=== PATIENT | female | born 1985 | race American Indian/Alaskan Native ===

== ENCOUNTER 2019-06-05 23:08 | Emergency (ER) | payer BC ==
[2019-06-06] MEDS ORDERED: ALBUTEROL 2.5 MG/3 ML NEBU IH ONE (00:32)
[2019-06-06] MEDS ORDERED: IBUPROFEN 800 MG TAB PO ONE (00:32)
[2019-06-06] MEDS ORDERED: predniSONE 20 MG TAB PO ONE (00:32)
--- NOTE | 2019-06-06 00:50 | Emergency Department Report ---
ED General Adult HPI - General Chief complaint: Upper Respiratory Infection Stated complaint: CHEST PAIN PUI?: No Time Seen by Provider: 06/06/19 00:31 Source: patient Mode of arrival: Ambulatory Limitations: No Limitations - History of Present Illness Initial comments: Ms. Jordan is a 33-year-old -Malagasy female with a history of asthma who presents for cough productive clear chest wall pain for the last 3 days. States she was seen at [facility] urgent care yesterday. However symptoms not improved with ibuprofen and Tessalon Perles. She states some intermittent shortness of breath. There is no nausea vomiting, fever, chills, lightheadedness, diaphoresis, fever or chills. Symptoms are exacerbated by activity movement and deep breathing. Symptoms are relieved by nothing tried. Patient was able to complete a full shift at work today. She is currently alert and oriented and ambulatory with steady gait ,with no acute distress at this time. Onset/Timin -: days(s) Location: chest Severity scale (0 -10): 3 Quality: aching Consistency: intermittent Improves with: rest Worsens with: movement Associated Symptoms: chest pain (chest wall ), cough. denies: confusion, diaphoresis, fever/chills, loss of appetite, nausea/vomiting, shortness of breath, syncope, weakness Treatments Prior to Arrival: none - Related Data Previous Rx's Medication Instructions Recorded Last Taken Type Albuterol INH(or & Nicu Only) 2 puff IH QID PRN #8.5 gram 06/06/19 Unknown Rx [ProAir HFA Inhaler] Azithromycin [Zithromax Z-JOSUE] 250 mg PO DAILY #6 tab 06/06/19 Unknown Rx predniSONE [Deltasone] 40 mg PO DAILY 5 Days #10 tablet 06/06/19 Unknown Rx Allergies Allergy/AdvReac Type Severity Reaction Status Date / Time No Known Allergies Allergy Unverified 06/05/19 23:36 ED Review of Systems ROS: Stated complaint: CHEST PAIN Other details as noted in HPI Constitutional: denies: chills, fever Eyes: denies: eye pain, eye discharge, vision change ENT: denies: ear pain, throat pain Respiratory: cough, wheezing. denies: shortness of breath Cardiovascular: denies: chest pain, palpitations, dyspnea on exertion Endocrine: no symptoms reported Gastrointestinal: denies: abdominal pain, nausea, vomiting, diarrhea Genitourinary: denies: urgency, dysuria, frequency, hematuria, discharge Musculoskeletal: denies: back pain, joint swelling, arthralgia Skin: as per HPI Neurological: denies: headache, weakness, paresthesias Psychiatric: denies: anxiety, depression Hematological/Lymphatic: denies: easy bleeding, easy bruising ED Past Medical Hx - Past Medical History Hx Asthma: Yes - Surgical History Past Surgical History?: No - Social History Smoking Status: Never Smoker Substance Use Type: None - Medications Home Medications: Home Medications Medication Instructions Recorded Confirmed Last Taken Type Albuterol INH(or & Nicu Only) 2 puff IH QID PRN #8.5 gram 06/06/19 Unknown Rx [ProAir HFA Inhaler] Azithromycin [Zithromax Z-JOSUE] 250 mg PO DAILY #6 tab 06/06/19 Unknown Rx predniSONE [Deltasone] 40 mg PO DAILY 5 Days #10 tablet 06/06/19 Unknown Rx ED Physical Exam - General Limitations: No Limitations General appearance: alert, in no apparent distress - Head Head exam: Present: atraumatic, normocephalic - Eye Eye exam: Present: normal appearance, PERRL, EOMI Pupils: Present: normal accommodation - ENT ENT exam: Present: normal orophraynx, mucous membranes moist, TM's normal bilaterally, normal external ear exam - Neck Neck exam: Present: normal inspection, full ROM. Absent: tenderness, lymp hadenopathy - Respiratory Respiratory exam: Present: normal lung sounds bilaterally, chest wall tenderness, prolonged expiratory. Absent: respiratory distress, wheezes, rales, rhonchi, stridor, decreased breath sounds - Cardiovascular Cardiovascular Exam: Present: regular rate, normal rhythm, normal heart sounds. Absent: systolic murmur, diastolic murmur, rubs, gallop - GI/Abdominal GI/Abdominal exam: Present: soft, normal bowel sounds. Absent: distended, tenderness, guarding, rebound, rigid, bruit, hernia - Rectal Rectal exam: Present: deferred - Extremities Exam Extremities exam: Present: normal inspection - Back Exam Back exam: Present: normal inspection, full ROM. Absent: tenderness, CVA tenderness (R), CVA tenderness (L), muscle spasm, paraspinal tenderness - Neurological Exam Neurological exam: Present: alert, oriented X3, CN II-XII intact, normal gait, reflexes normal. Absent: motor sensory deficit - Psychiatric Psychiatric exam: Present: normal affect, normal mood - Skin Skin exam: Present: warm, dry, intact, normal color. Absent: rash ED Course Vital Signs 06/05/19 06/06/19 06/06/19 23:31 01:14 02:51 Temperature 99.4 F Pulse Rate 104 H 90 Pulse Rate [ 106 H Bilateral] Respiratory 18 18 Rate Respiratory 20 Rate [Bilateral ] Blood Pressure 142/87 135/82 O2 Sat by Pulse 100 96 Oximetry ED Medical Decision Making - EKG Data -: No EKG Interpreted by Me EKG shows normal: sinus rhythm, axis, intervals, QRS complexes, ST-T waves Rate: normal - EKG Data When compared to previous EKG there are: no significant change, previous EKG unavailable Interpretation: normal EKG (ekg interp by ed attending NSR No ST Elevated [place] ) - Radiology Data Radiology results: report reviewed, image reviewed Findings Reporting MD: Jose Hameed Dictation Time: June 06, 2019 00:37 Senior Government Program Analyst: Not available It Program Auditor Date: CHEST 2 VIEWS 0110 INDICATION / CLINICAL INFORMATION: MAIN: chest pain X 1 DAY COMPARISON: None available. FINDINGS: SUPPORT DEVICES: None. HEART / MEDIASTINUM: Mild cardiomegaly LUNGS / PLEURA: Mildly congested appearance is noted. There might be slight interstitial edema. No pleural effusions are seen. No areas of consolidation are noted. No pneumothorax. ADDITIONAL FINDINGS: No significant additional findings. IMPRESSION: Mild congestion Signer Name: Jose Hameed MD Signed: 06/06/2019 12:37 AM Workstation Name: [id number] - Medical Decision Making Symptoms improved, plan: dc to home with rx for albuterol inhaler, Prednisone, azithromycin, continue tessalon pears and ibuprofen, follow up with pcp in 2-3 days. Pt verbalized agreement and understanding of discharge plan. Critical care attestation.: If time is entered above; I have spent that time in minutes in the direct care of this critically ill patient, excluding procedure time. ED Disposition Clinical Impression: Asthma Qualifiers: Asthma severity: moderate Asthma persistence: persistent Asthma complication type: with acute exacerbation Qualified Code(s): J45.41 - Moderate persistent asthma with (acute) exacerbation Disposition: DC-01 TO HOME OR SELFCARE Is pt being admited?: No Does the pt Need Aspirin: No Condition: Stable Instructions: Asthma (ED) Prescriptions: predniSONE [Deltasone] 40 mg PO DAILY 5 Days #10 tablet Albuterol INH(or & Nicu Only) [ProAir HFA Inhaler] 2 puff IH QID PRN #8.5 gram PRN Reason: Shortness Of Breath Azithromycin [Zithromax Z-JOSUE] 250 mg PO DAILY #6 tab Referrals: DULCE MELARA MD [Staff Physician] - 3-5 Days Forms: Work/School Release Form(ED) Time of Disposition: 02:59
--- NOTE | 2019-06-06 01:42 | XRay Report ---
CHEST 2 VIEWS 0110 INDICATION / CLINICAL INFORMATION: MAIN: chest pain X 1 DAY COMPARISON: None available. FINDINGS: SUPPORT DEVICES: None. HEART / MEDIASTINUM: Mild cardiomegaly LUNGS / PLEURA: Mildly congested appearance is noted. There might be slight interstitial edema. No pl eural effusions are seen. No areas of consolidation are noted. No pneumothorax. ADDITIONAL FINDINGS: No significant additional findings. IMPRESSION: Mild congestion Signer Name: Jose Hameed MD Signed: 06/06/2019 1:37 AM Workstation Name: [id number]
[2019-06-06 02:52] VITALS: BP 135/82
== END 2019-06-06 03:07 | disposition home or self-care (01) ==
LOC: ED 23:08
DX: J45.21 Mild intermittent asthma with (acute) exacerbation (principal)
CPT/HCPCS: 71046; 93005; 94640; 99283; J7512; 94644

== ENCOUNTER 2020-01-09 23:06 | Inpatient (IN) | payer BC, MEDICAID ==
[2020-01-10] MEDS ORDERED: LACTATED RINGERS 1,000 ML IV ONE (00:26)
[2020-01-10 01:04] LABS: Bilirubin,Urine NEG (Negative); Blood,Urine NEG (Negative); Color,Urine Straw (Yellow); Protein,Urine <15 mg/dL mg/dL (Negative); Urobilinogen,Urine < 2.0 mg/dL (<2.0)
[2020-01-10] MEDS ORDERED: SODIUM CHLORIDE 0.45% 1000 ML 1,000 ML IV SCH ×3 (02:00→13:00)
[2020-01-10] MEDS ORDERED: INSULIN REGULAR, HUMAN 100 UNIT/ML 3ML VIAL IV SCH ×2 (02:00→14:00)
[2020-01-10] MEDS ORDERED: INSULIN REGULAR, HUMAN 100 UNIT/ML 3ML VIAL SUB-Q SCH ×4 (03:00→17:00)
[2020-01-10 03:15] LABS: Alanine Aminotransferase 15 units/L (7-56); Albumin 3.3 g/dL (3.9-5); BUN/Creatinine Ratio 18; Blood Urea Nitrogen 11 mg/dL (7-17); Calcium 9.9 mg/dL (8.4-10.2); Hemolysis Index 15
[2020-01-10] MEDS: INSULIN REGULAR, HUMAN 100 UNIT/ML 3ML VIAL SUB-Q SCH ×3 (03:36→10:35)
--- NOTE | 2020-01-10 04:05 | Consultation ---
History of Present Illness - Reason for Consult Consult date: 01/10/20 Gestational Diabetes, UTI, Hyponatremia - History of Present Illness This is a 34 year old female patient who presents with elevated blood sugar. hospitalist is consulted to see patient due to elevated blood sugar. On assessment, she reports urine frequency and urgency. She also report polydipsia. patient has past medical hx of gestational diabetes that resolved after delivery. She denies alcohol, illicit drug use and tobabbaco use. lung sound is clear to auscultation and heart rate is regular. Urinalysis shows elevated Urine WBC. lab work show potassium 4.0, sodium 131, serum glycose 374. Past History Past Medical History: diabetes, other (gestational diabetes) Past Surgical History: No surgical history Social history: no significant social history Family history: no significant family history Medications and Allergies Allergies Allergy/AdvReac Type Severity Reaction Status Date / Time No Known Allergies Allergy Verified 08/31/19 12:40 Home Medications Medication Instructions Recorded Confirmed Last Taken Type Albuterol Mdi (or & Nicu Only) 2 puff IH QID PRN #8.5 gram 06/06/19 Unknown Rx [ProAir HFA Inhaler] Azithromycin [Zithromax Z-JOSUE] 250 mg PO DAILY #6 tab 06/06/19 Unknown Rx predniSONE [Deltasone] 40 mg PO DAILY 5 Days #10 tablet 06/06/19 Unknown Rx Active Meds: Active Medications Sodium Chloride (Nacl 0.45% 1000 Ml) 1,000 mls @ 125 mls/hr IV DIRECT FATIMAH Last Admin: 01/10/20 03:01 Dose: 125 mls/hr Documented by: Insulin Human Regular (Humulin R) 0 unit SUB-Q Q4HR FATIMAH; Protocol Last Admin: 01/10/20 03:36 Dose: 8 unit Documented by: Labetalol HCl (Labetalol) 200 mg PO BID FATIMAH Review of Systems Cardiovascular: no chest pain Respiratory: no hemoptysis Gastrointestinal: no abdominal pain, no hematochezia Genitourinary Female: urinary frequency, urgency, incomplete emptying, no dyspareunia Menstruation: no period heavy Rectal: no pain Musculoskeletal: no neck stiffness, no arm numbness/tingling Integumentary: no rash Neurological: no head injury Psychiatric: anxiety Endocrine: excessive thirst, polydipsia, polyuria Hematologic/Lymphatic: no lymphedema Allergic/Immunologic: no angioedema Exam - Constitutional Vitals: Temp Pulse Resp BP Pulse Ox 98.4 F 121 H 19 177/111 100 01/10/20 02:09 01/10/20 03:51 01/10/20 02:09 01/10/20 03:39 01/10/20 03:51 General appearance: Present: obese - EENT Eyes: Present: PERRL ENT: hearing intact, clear oral mucosa - Neck Neck: Present: supple, normal ROM - Respiratory Respiratory effort: normal Respiratory: bilateral: CTA - Cardiovascular Heart rate: 121 Heart Sounds: Present: S1 & S2. Absent: rub, click - Extremities Extremities: pulses symmetrical, No edema Peripheral Pulses: within normal limits - Abdominal General gastrointestinal: Present: soft, non-tender, non-distended, normal bowel sounds Female genitourinary: Present: other (urine frequency, polydipsia, and burning on urination) - Integumentary Integumentary: Present: clear, warm, dry - Musculoskeletal Musculoskeletal: gait normal, strength equal bilaterally - Psychiatric Psychiatric: appropriate mood/affect, intact judgment & insight - Neurologic Neurologic: CNII-XII intact, moves all extremities - Allied Health Allied health notes reviewed: nursing Results - Labs CBC & Chem 7: 01/10/20 02:40 Labs: Abnormal lab results 01/10/20 01/10/20 01/10/20 Range/Units 00:21 00:25 02:40 Sodium 131 L (137-145) mmol/L Carbon Dioxide 15 L (22-30) mmol/L Glucose 374 H (65-100) mg/dL POC Glucose 381 H (70-105) mg/dL Albumin 3.3 L (3.9-5) g/dL Ur Specific [place] 1.033 H (1.003-1.030) Urine WBC (Auto) 34.0 H (0.0-6.0) /HPF 01/10/20 Range/Units 03:00 Sodium (137-145) mmol/L Carbon Dioxide (22-30) mmol/L Glucose (65-100) mg/dL POC Glucose 335 H (70-105) mg/dL Albumin (3.9-5) g/dL Ur Specific [place] (1.003-1.030) Urine WBC (Auto) (0.0-6.0) /HPF Assessment and Plan - Patient Problems (1) Gestational diabetes Current Visit: Yes Status: Acute Plan to address problem: monitor blood sugar with SSI Check HGA1c IV hydration with normal saline Monitor blood sugar and potassium level (2) Urinary tract infection Current Visit: Yes Status: Acute Plan to address problem: IV hydration empiric abx with macrobid (3) Hyponatremia Current Visit: Yes Status: Acute Plan to address problem: Most likely 2/2 to dehydration monitor sodium level Started on iv hydration with normal saline
[2020-01-10] MEDS ORDERED: SODIUM CHLORIDE 0.9% 1000 ML 1,000 ML IV SCH ×2 (04:30)
[2020-01-10 08:33] LABS: Basophils % (Auto) 0.3 % (0.0-1.8); Eosinophils # (Auto) 0.1 K/mm3 (0.0-0.4); Hematocrit 30.5 % (30.3-42.9); Hemoglobin 9.5 gm/dl (10.1-14.3); Lymphocytes # (Auto) 1.6 K/mm3 (1.2-5.4); Lymphocytes % (Auto) 11.1 % (13.4-35.0); Mean Corpuscular HGB Conc 31 % (30-34); Mean Corpuscular Volume 77 fl (79-97); Monocytes # (Auto) 1.2 K/mm3 (0.0-0.8); Monocytes % (Auto) 8.8 % (0.0-7.3); Platelet Count 315 K/mm3 (140-440); Red Blood Count 3.96 M/mm3 (3.65-5.03); Red Cell Distribution Width 16.7 % (13.2-15.2)
[2020-01-10] MEDS: NITROFURANTOIN MONOHYD/M-CRYST 100 MG CAP PO SCH ×2 (09:05→21:45)
[2020-01-10] MEDS ORDERED: SODIUM CHLORIDE 0.45% 1000 ML IV SOLN IV SCH (12:31)
--- NOTE | 2020-01-10 13:13 | History and Physical Report ---
History of Present Illness Date of examination: 01/10/20 Date of admission: 01/10/20 00:26 Chief complaint: elevated CBGs History of present illness: 34 yo A1 at 29w6d by Class III Obesity, atleast gestational diabetes (A1c 10.6, on split dose insulin 10R/20N AM and 10R/10N PM), chronic hypertension (on labetolol 100mg BID and aspirin, TP pending) presenting with very elevated CBGs, reportedly >500 at home in the afternoon ~1200 prior to presenting to the ED 12 hours last to CBGs >350. Patient reports compliance with AM insulin and antihypertensive, but didn't take PM dosing prior to coming to ED. Reported having similar episode in previous requiring admission for diabetic management. Denies labor complaints or PIH symptoms. +FM. PNC with [facility] and [facility] Past History Past Medical History: asthma, hypertension, diabetes, other (hx accessioner workup for arrthymia with reported negative workup) Past Surgical History: section (x1) Family/Genetic History: diabetes Social history: other (sedentary job) - Obstetrical History : 3 Para: 1 Hx # Term Pregnancies: 1 Spontaneous Abortions: 1 Number of Living Children: 1 Medications and Allergies Allergies Allergy/AdvReac Type Severity Reaction Status Date / Time No Known Allergies Allergy Verified 08/31/19 12:40 Home Medications Medication Instructions Recorded Confirmed Last Taken Type Albuterol Mdi (or & Nicu Only) 2 puff IH QID PRN #8.5 gram 06/06/19 Unknown Rx [ProAir HFA Inhaler] Azithromycin [Zithromax Z-JOSUE] 250 mg PO DAILY #6 tab 06/06/19 Unknown Rx predniSONE [Deltasone] 40 mg PO DAILY 5 Days #10 tablet 06/06/19 Unknown Rx Active Meds: Active Medications Sodium Chloride (Nacl 0.45% 1000 Ml) 1,000 mls @ 125 mls/hr IV DIRECT FATIMAH Insulin Human Regular (Humulin R) 0 unit SUB-Q Q2H FATIMAH; Protocol Last Admin: 01/10/20 12:24 Dose: 16 unit Documented by: Labetalol HCl (Labetalol) 200 mg PO BID FATIMAH Last Admin: 01/10/20 09:10 Dose: Not Given Documented by: Nitrofurantoin Macrocrystals (Macrobid) 100 mg PO Q12HR FATIMAH Last Admin: 01/10/20 09:05 Dose: 100 mg Documented by: Review of Systems All systems: negative (expect HPI) - Vital Signs Vital signs: Vital Signs Pulse BP 133 H 141/97 01/10/20 00:00 01/10/20 00:00 Temp Pulse Resp BP Pulse Ox 98.4 F 101 H 15 118/57 99 01/10/20 11:28 01/10/20 13:02 01/10/20 11:28 01/10/20 11:28 01/10/20 13:02 - Physical Exam Cardiovascular: Regular rate, Normal S1 Lungs: Positive: Clear to auscultation Abdomen: Positive: normal appearance, normal bowel sounds, other (gravid, obese) - Obstetrical FHR: category 1 Uterine Contraction Monitor Mode: External Uterine Contraction Pattern: Absent Results Result Diagrams: 01/10/20 08:04 01/10/20 02:40 Abnormal lab results 01/10/20 01/10/20 01/10/20 Range/Units 00:21 00:25 02:40 WBC (4.5-11.0) K/mm3 Hgb (10.1-14.3) gm/dl MCV (79-97) fl MCH (28-32) pg RDW (13.2-15.2) % Lymph % (Auto) (13.4-35.0) % Union % (Auto) (0.0-7.3) % [place] # (Auto) (0.0-0.8) K/mm3 Seg Neutrophils % (40.0-70.0) % Seg Neutrophils # (1.8-7.7) K/mm3 Sodium 131 L (137-145) mmol/L Carbon Dioxide 15 L (22-30) mmol/L Glucose 374 H (65-100) mg/dL POC Glucose 381 H (70-105) mg/dL Hemoglobin A1c (4-6) % Albumin 3.3 L (3.9-5) g/dL Ur Specific [place] 1.033 H (1.003-1.030) Urine WBC (Auto) 34.0 H (0.0-6.0) /HPF 01/10/20 01/10/20 01/10/20 Range/Units 03:00 04:11 05:06 WBC (4.5-11.0) K/mm3 Hgb (10.1-14.3) gm/dl MCV (79-97) fl MCH (28-32) pg RDW (13.2-15.2) % Lymph % (Auto) (13.4-35.0) % Union % (Auto) (0.0-7.3) % Union # (Auto) (0.0-0.8) K/mm3 Seg Neutrophils % (40.0-70.0) % Seg Neutrophils # (1.8-7.7) K/mm3 Sodium (137-145) mmol/L Carbon Dioxide (22-30) mmol/L Glucose (65-100) mg/dL POC Glucose 335 H 305 H 328 H (70-105) mg/dL Hemoglobin A1c (4-6) % Albumin (3.9-5) g/dL Ur Specific [place] (1.003-1.030) Urine WBC (Auto) (0.0-6.0) /HPF 01/10/20 01/10/20 01/10/20 Range/Units 06:22 08:04 08:04 WBC 14.2 H (4.5-11.0) K/mm3 Hgb 9.5 L (10.1-14.3) gm/dl MCV 77 L (79-97) fl MCH 24 L (28-32) pg RDW 16.7 H (13.2-15.2) % Lymph % (Auto) 11.1 L (13.4-35.0) % Union % (Auto) 8.8 H (0.0-7.3) % [place] # (Auto) 1.2 H (0.0-0.8) K/mm3 Seg Neutrophils % 78.8 H (40.0-70.0) % Seg Neutrophils # 11.2 H (1.8-7.7) K/mm3 Sodium (137-145) mmol/L Carbon Dioxide (22-30) mmol/L Glucose (65-100) mg/dL POC Glucose 295 H (70-105) mg/dL Hemoglobin A1c 10.3 H (4-6) % Albumin (3.9-5) g/dL Ur Specific [place] (1.003-1.030) Urine WBC (Auto) (0.0-6.0) /HPF 01/10/20 01/10/2020 Range/Units 08:23 09:31 10:34 WBC (4.5-11.0) K/mm3 Hgb (10.1-14.3) gm/dl MCV (79-97) fl MCH (28-32) pg RDW (13.2-15.2) % Lymph % (Auto) (13.4-35.0) % Union % (Auto) (0.0-7.3) % [place] # (Auto) (0.0-0.8) K/mm3 Seg Neutrophils % (40.0-70.0) % Seg Neutrophils # (1.8-7.7) K/mm3 Sodium (137-145) mmol/L Carbon Dioxide (22-30) mmol/L Glucose (65-100) mg/dL POC Glucose 293 H 287 H 317 H (70-105) mg/dL Hemoglobin A1c (4-6) % Albumin (3.9-5) g/dL Ur Specific [place] (1.003-1.030) Urine WBC (Auto) (0.0-6.0) /HPF 01/10/20 01/10/20 Range/Units 11:35 12:23 WBC (4.5-11.0) K/mm3 Hgb (10.1-14.3) gm/dl MCV (79-97) fl MCH (28-32) pg RDW (13.2-15.2) % Lymph % (Auto) (13.4-35.0) % Union % (Auto) (0.0-7.3) % [place] # (Auto) (0.0-0.8) K/mm3 Seg Neutrophils % (40.0-70.0) % Seg Neutrophils # (1.8-7.7) K/mm3 Sodium (137-145) mmol/L Carbon Dioxide (22-30) mmol/L Glucose (65-100) mg/dL POC Glucose 293 H 335 H (70-105) mg/dL Hemoglobin A1c (4-6) % Albumin (3.9-5) g/dL Ur Specific [place] (1.003-1.030) Urine WBC (Auto) (0.0-6.0) /HPF All other labs normal. Assessment and Plan - Patient Problems (1) Chronic hypertension affecting Current Visit: Yes Status: Acute Plan to address problem: --Elvated BPs on presentation. PIH labs wnl. Possibly 2/2 to missed home dose 01/09/2020 PM. --Continue home labetolol 100mg BID, titrate prn --24H TP given elevated BPs on presentation. --Continue to monitor (2) Asthma Current Visit: Yes Status: Acute Plan to address problem: --Albertol prn, titrate prn (3) 29 weeks gestation of Current Visit: Yes Status: Acute Plan to address problem: --Routine AP management, home management including steriods, antibiotics unless indication for delivery (4) Gestational diabetes Current Visit: Yes Status: Acute Plan to address problem: --Failed SubQ management. No concern for acute DKA at this time. --Start insulin drip, 100U Regular in 100cc NS, start 4 cc regular insulin per hour, titrate until CBGs <140. --Consistent carb diet --In coordination with hospitalist and [facility] for further management and transition to subQ when indicated
[2020-01-10] MEDS ORDERED: ALBUTEROL 2.5 MG/3 ML NEBU IH PRN (13:53)
[2020-01-10] MEDS ORDERED: INSULIN NPH, HUMAN 100 UNIT/1 ML SUB-Q ONE ×2 (15:00→21:50)
[2020-01-10 15:07] LABS: Alanine Aminotransferase 21 units/L (7-56); Albumin 3.1 g/dL (3.9-5); BUN/Creatinine Ratio 18; Blood Urea Nitrogen 9 mg/dL (7-17); Calcium 8.9 mg/dL (8.4-10.2); Hemolysis Index 1
[2020-01-10] MEDS ORDERED: INSULIN LISPRO 100 UNIT/ML VIAL 3 mL SUB-Q ONE ×3 (16:52→21:51)
[2020-01-10] MEDS ORDERED: INSULIN NPH, HUMAN 100 UNIT/1 ML SUB-Q SCH (17:00)
[2020-01-10 20:02] LABS: Alanine Aminotransferase 19 units/L (7-56); Albumin 2.8 g/dL (3.9-5); Blood Urea Nitrogen 10 mg/dL (7-17); Calcium 8.7 mg/dL (8.4-10.2); Hemolysis Index 2
[2020-01-10 20:03] LABS: BUN/Creatinine Ratio 20
[2020-01-10] MEDS: SODIUM CHLORIDE 0.45% 1000 ML 1,000 ML IV SCH (20:21)
[2020-01-10] MEDS ORDERED: glyBURIDE 5 MG TAB PO ONE (21:53)
[2020-01-11 01:33] LABS: Alanine Aminotransferase 20 units/L (7-56); Albumin 3.1 g/dL (3.9-5); Blood Urea Nitrogen 8 mg/dL (7-17); Calcium 8.9 mg/dL (8.4-10.2); Hemolysis Index 8
[2020-01-11 01:45] LABS: BUN/Creatinine Ratio 16
[2020-01-11] MEDS: SODIUM CHLORIDE 0.45% 1000 ML 1,000 ML IV SCH (02:15)
--- NOTE | 2020-01-11 07:09 | Progress Note ---
Assessment and Plan Assessment and plan: Patient is a 34 year old female patient who presents with elevated blood sugar. hospitalist is consulted to see patient due to elevated blood sugar. On assessment, she reports urine frequency and urgency. She also report polydipsia. patient has past medical hx of gestational diabetes that resolved after delivery. She denies alcohol, illicit drug use and tobabbaco use. lung sound is clear to auscultation and heart rate is regular. Urinalysis shows elevated Urine WBC. lab work show potassium 4.0, sodium 131, serum glycose 374. /: Blood glucose stable, no new complaints. Continue current management. (1) Gestational diabetes Current Visit: Yes Status: Acute Plan to address problem: monitor blood sugar with SSI Check HGA1c IV hydration with normal saline Monitor blood sugar and potassium level (2) Urinary tract infection Current Visit: Yes Status: Acute Plan to address problem: IV hydration empiric abx with macrobid (3) Hypokalemia Replace. (4) Anemia Stable. (5) Hyponatremia Current Visit: Yes Status: Acute Plan to address problem: Most likely 2/2 to dehydration monitor sodium level Started on iv hydration with normal saline History Interval history: Patient seen and examined resting comfortably sleeping on the side no new complaints at this time. Hospitalist Physical - Physical exam Narrative exam: VITAL SIGNS: Reviewed. GENERAL: The patient appears normally developed, Vital signs as documented. HEAD: No signs of head trauma. EYES: Pupils are equal. Extraocular motions intact. EARS: Hearing grossly intact. MOUTH: Oropharynx is normal. NECK: No adenopathy, no JVD. CHEST: Chest with clear breath sounds bilaterally. No wheezes, rales, or rhonchi. CARDIAC: Regular rate and rhythm. S1 and S2, without murmurs, gallops, or rubs. VASCULAR: No Edema. Peripheral pulses normal and equal in all extremities. ABDOMEN: Gravidus, soft, non tender and non distended. No rebound or guarding, and no masses palpated. Bowel Sounds normal. MUSCULOSKELETAL: Good range of motion of all major joints. Extremities without clubbing, cyanosis or edema. NEUROLOGIC EXAM: Alert and oriented x 3 No focal sensory or strength deficits. Speech normal. Follows commands. PSYCHIATRIC: Mood normal. SKIN: detail exam as documented in skin assessment - Constitutional Vitals: Temp Pulse Resp BP Pulse Ox 98.1 F 106 H 14 137/84 100 12/06/20 00:30 01/11/20 07:07 01/10/20 16:20 01/11/20 07:02 01/11/20 07:07 General appearance: Present: obese Results - Labs CBC & Chem 7: 01/10/20 08:04 01/11/20 00:50 Labs: Laboratory Last Values WBC 14.2 K/mm3 (4.5-11.0) H 01/10/20 08:04 RBC 3.96 M/mm3 (3.65-5.03) 01/10/20 08:04 Hgb 9.5 gm/dl (10.1-14.3) L 01/10/20 08:04 Hct 30.5 % (30.3-42.9) 01/10/20 08:04 MCV 77 fl (79-97) L 01/10/20 08:04 MCH 24 pg (28-32) L 01/10/20 08:04 MCHC 31 % (30-34) 01/10/20 08:04 RDW 16.7 % (13.2-15.2) H 01/10/20 08:04 Plt Count 315 K/mm3 (140-440) 01/10/20 08:04 Lymph % (Auto) 11.1 % (13.4-35.0) L 01/10/20 08:04 [place] % (Auto) 8.8 % (0.0-7.3) H 01/10/20 08:04 Eos % (Auto) 1.0 % (0.0-4.3) 01/10/20 08:04 Baso % (Auto) 0.3 % (0.0-1.8) 01/10/20 08:04 Lymph # (Auto) 1.6 K/mm3 (1.2-5.4) 01/10/20 08:04 [place] # (Auto) 1.2 K/mm3 (0.0-0.8) H 01/10/20 08:04 Eos # (Auto) 0.1 K/mm3 (0.0-0.4) 01/10/20 08:04 Baso # (Auto) 0.0 K/mm3 (0.0-0.1) 01/10/20 08:04 Seg Neutrophils % 78.8 % (40.0-70.0) H 01/10/20 08:04 Seg Neutrophils # 11.2 K/mm3 (1.8-7.7) H 01/10/20 08:04 Sodium 131 mmol/L (137-145) L 01/11/20 00:50 Potassium 3.4 mmol/L (3.6-5.0) L 01/11/20 00:50 Chloride 101.1 mmol/L (98-107) 01/11/20 00:50 Carbon Dioxide 18 mmol/L (22-30) L 01/11/20 00:50 Anion Gap 15 mmol/L 01/11/20 00:50 BUN 8 mg/dL (7-17) 01/11/20 00:50 Creatinine 0.5 mg/dL (0.6-1.2) L 01/11/20 00:50 Estimated GFR > 60 ml/min 01/11/20 00:50 BUN/Creatinine Ratio 16 % 01/11/20 00:50 Glucose 230 mg/dL (65-100) H 01/11/20 00:50 POC Glucose 169 mg/dL (70-105) H 01/11/20 05:50 Hemoglobin A1c 10.3 % (4-6) H 01/10/20 08:04 Calcium 8.9 mg/dL (8.4-10.2) 01/11/20 00:50 Total Bilirubin 0.20 mg/dL (0.1-1.2) 01/11/20 00:50 AST 18 units/L (5-40) 01/11/20 00:50 ALT 20 units/L (7-56) 01/11/20 00:50 Alkaline Phosphatase 105 units/L (35-129) 01/11/20 00:50 Total Protein 6.6 g/dL (6.3-8.2) 01/11/20 00:50 Albumin 3.1 g/dL (3.9-5) L 01/11/20 00:50 Albumin/Globulin Ratio 0.9 % 01/11/20 00:50 Urine Color Straw (Yellow) 01/10/20 00:25 Urine Turbidity Clear (Clear) 01/10/20 00:25 Urine pH 6.0 (5.0-7.0) 01/10/20 00:25 Ur Specific [place] 1.033 (1.003-1.030) H 01/10/20 00:25 Urine Protein <15 mg/dl mg/dL (Negative) 01/10/20 00:25 Urine Glucose (UA) >=500 mg/dL (Negative) 01/10/20 00:25 Urine Ketones 80 mg/dL (Negative) 01/10/20 00:25 Urine Blood Neg (Negative) 01/10/20 00:25 Urine Nitrite Neg (Negative) 01/10/20 00:25 Urine Bilirubin Neg (Negative) 01/10/20 00:25 Urine Urobilinogen < 2.0 mg/dL (<2.0) 01/10/20 00:25 Ur Leukocyte Esterase Mod (Negative) 01/10/20 00:25 Urine WBC (Auto) 34.0 /HPF (0.0-6.0) H 01/10/20 00:25 Urine RBC (Auto) 18.0 /HPF (0.0-6.0) 01/10/20 00:25 U Epithel Cells (Auto) 2.0 /HPF (0-13.0) 01/10/20 00:25 Urine Yeast (Budding) Few /HPF 01/10/20 00:25 Hua/IV: IV Catheter Type [Left Hand] Peripheral IV Active Medications - Current Medications Current Medications: Generic Name Dose Route Start Last Admin Trade Name Freq PRN Reason Stop Dose Admin Albuterol 2.5 mg 01/10/20 13:53 Proventil IH QIDRT PRN Shortness Of Breath Sodium Chloride 1,000 mls @ 150 mls/hr 01/10/20 20:06 01/11/20 02:15 Nacl 0.45% 1000 Ml IV 150 mls/hr DIRECT FATIMAH Administration Insulin Human NPH 30 unit 01/11/20 08:00 Humulin N SUB-Q QDDIAB FATIMAH Insulin Human NPH 15 unit 01/11/20 17:00 Humulin N SUB-Q QPMDIAB FATIMAH Insulin Human Regular 15 unit 01/11/20 08:00 Humulin R SUB-Q QDDIAB FATIMAH Insulin Human Regular 15 unit 01/11/20 17:00 Humulin R SUB-Q QPMDIAB FATIMAH Labetalol HCl 100 mg 01/10/20 22:00 01/10/20 21:45 Labetalol PO 100 mg BID FATIMAH Administration Nitrofurantoin Macrocrystals 100 mg 01/10/20 10:00 01/10/20 21:45 Macrobid PO 100 mg Q12HR FATIMAH Administration
[2020-01-11] MEDS: INSULIN REGULAR, HUMAN 100 UNIT/ML 3ML VIAL SUB-Q SCH (08:16)
[2020-01-11] MEDS: INSULIN NPH, HUMAN 100 UNIT/1 ML SUB-Q SCH (08:16)
[2020-01-11] MEDS ORDERED: INSULIN NPH, HUMAN 100 UNIT/1 ML SUB-Q ONE ×2 (10:00→23:00)
[2020-01-11] MEDS ORDERED: INSULIN LISPRO 100 UNIT/ML VIAL 3 mL SUB-Q ONE ×3 (10:00→19:42)
[2020-01-11 10:28] LABS: Creatinine 24 Hour,Urine 2.2 (0.8-2.8); Creatinine,Urine 88.7 mg/dL (0.1-20.0)
[2020-01-11] MEDS: NITROFURANTOIN MONOHYD/M-CRYST 100 MG CAP PO SCH ×2 (10:53→21:37)
[2020-01-11] MEDS ORDERED: POTASSIUM CHLORIDE ER 20 MEQ TAB PO ONE (11:57)
[2020-01-11 12:29] LABS: Alanine Aminotransferase 20 units/L (7-56); Albumin 3.1 g/dL (3.9-5); Blood Urea Nitrogen 6 mg/dL (7-17); Calcium 8.9 mg/dL (8.4-10.2); Hemolysis Index 0
[2020-01-11 12:31] LABS: BUN/Creatinine Ratio 12
--- NOTE | 2020-01-11 12:52 | Consultation ---
History of Present Illness Consult date: 01/11/20 Requesting physician: NAVEED ARMANDO JR History of present illness: Patient is a 34 YO A1 at 30w1d due to reported home glucose values into the 500s. HOSPITAL COURSE She has had significantly elevated glucose values noted this admission that has required insulin supplementation. She admits to having been drinking juices at home prior to her glucose spike. We were not able to initiate an insulin drip due to policy issues, david she has had her insulin supplemented overnight. She was diagnosed with GDM at @ 16 weeks, which by definition makes her a newly diagnosed diabetic. She has been seen by [facility] and she was on insulin prior to this admission of 10R/20N AM and 10R/10N PM. HbA1c is noted at 10.6. Patient has a medical risks associated with her history of Class III Obesity and chronic hypertension which has been managed on labetolol 100mg BID and aspirin. She denied any headaches or visual changes. She denies any regular cramping, pressure, LOF or bleeding. She admits good activity. 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 with reported negative workup) Past Surgical History: section (x1) Family/Genetic History: diabetes - Obstetrical History : 3 Medications and Allergies Allergies Allergy/AdvReac Type Severity Reaction Status Date / Time No Known Allergies Allergy Verified 08/31/19 12:40 Home Medications Medication Instructions Recorded Confirmed Last Taken Type Albuterol Mdi (or & Nicu Only) 2 puff IH QID PRN #8.5 gram 06/06/19 Unknown Rx [ProAir HFA Inhaler] Azithromycin [Zithromax Z-JOSUE] 250 mg PO DAILY #6 tab 06/06/19 Unknown Rx predniSONE [Deltasone] 40 mg PO DAILY 5 Days #10 tablet 06/06/19 Unknown Rx Active Meds: Active Medications Albuterol (Proventil) 2.5 mg IH QIDRT PRN PRN Reason: Shortness Of Breath Sodium Chloride (Nacl 0.45% 1000 Ml) 1,000 mls @ 150 mls/hr IV DIRECT FATIMAH Last Admin: 01/11/20 02:15 Dose: 150 mls/hr Documented by: Insulin Human NPH (Humulin N) 30 unit SUB-Q QDDIAB FATIMAH Last Admin: 01/11/20 08:16 Dose: 30 unit Documented by: Insulin Human NPH (Humulin N) 15 unit SUB-Q QPMDIAB [facility] Insulin Human Regular (Humulin R) 15 unit SUB-Q QDDIAB [facility] Last Admin: 01/11/20 08:16 Dose: 15 unit Documented by: Insulin Human Regular (Humulin R) 15 unit SUB-Q QPMDIAB [facility] Labetalol HCl (Labetalol) 100 mg PO BID [facility] Last Admin: 01/11/20 10:52 Dose: 100 mg Documented by: Nitrofurantoin Macrocrystals (Macrobid) 100 mg PO Q12HR [facility] Last Admin: 01/11/20 10:53 Dose: 100 mg Documented by: Review of Systems All systems: negative (Periodic cramping) - Vital Signs Vital signs: Vital Signs Morbidly obese Pulse BP 133 H 141/97 01/10/20 00:00 01/10/20 00:00 Temp Pulse Resp BP Pulse Ox 98.3 F 108 H 18 133/77 97 01/11/20 07:40 01/11/20 12:33 01/11/20 07:40 01/11/20 11:02 01/11/20 12:33 - Physical Exam Breasts: Positive: deferred Abdomen: Positive: soft, other (Gravid, NT) Extremities: Positive: normal - Obstetrical FHR: category 1 Results Result Diagrams: 01/10/20 08:04 01/11/20 11:24 Abnormal lab results 01/10/20 01/10/20 01/10/20 Range/Units 10:00 13:19 14:15 Sodium 130 L (137-145) mmol/L Potassium (3.6-5.0) mmol/L Carbon Dioxide 16 L (22-30) mmol/L BUN (7-17) mg/dL Creatinine 0.5 L (0.6-1.2) mg/dL Glucose 284 H (65-100) mg/dL POC Glucose 265 H (70-105) mg/dL Albumin 3.1 L (3.9-5) g/dL Urine Creatinine 88.7 H (0.1-20.0) mg/dL Ur Total Protein 24 Hr 425.00 H (2-200) mg/dL Urine Total Protein 17 H (5-11.8) mg/dL 01/10/20 01/10/20 01/10/20 Range/Units 14:49 16:39 18:31 Sodium (137-145) mmol/L Potassium (3.6-5.0) mmol/L Carbon Dioxide (22-30) mmol/L BUN (7-17) mg/dL Creatinine (0.6-1.2) mg/dL Glucose (65-100) mg/dL POC Glucose 264 H 258 H 299 H (70-105) mg/dL Albumin (3.9-5) g/dL Urine Creatinine (0.1-20.0) mg/dL Ur Total Protein 24 Hr (2-200) mg/dL Urine Total Protein (5-11.8) mg/dL 01/10/20 01/10/20 01/10/20 Range/Units 19:14 19:46 21:44 Sodium 128 L (137-145) mmol/L Potassium (3.6-5.0) mmol/L Carbon Dioxide 17 L (22-30) mmol/L BUN (7-17) mg/dL Creatinine 0.5 L (0.6-1.2) mg/dL Glucose 321 H (65-100) mg/dL POC Glucose 257 H 300 H (70-105) mg/dL Albumin 2.8 L (3.9-5) g/dL Urine Creatinine (0.1-20.0) mg/dL Ur Total Protein 24 Hr (2-200) mg/dL Urine Total Protein (5-11.8) mg/dL 01/10/20 01/11/20 01/11/20 Range/Units 23:42 00:50 01:41 Sodium 131 L (137-145) mmol/L Potassium 3.4 L (3.6-5.0) mmol/L Carbon Dioxide 18 L (22-30) mmol/L BUN (7-17) mg/dL Creatinine 0.5 L (0.6-1.2) mg/dL Glucose 230 H (65-100) mg/dL POC Glucose 253 H 191 H (70-105) mg/dL Albumin 3.1 L (3.9-5) g/dL Urine Creatinine (0.1-20.0) mg/dL Ur Total Protein 24 Hr (2-200) mg/dL Urine Total Protein (5-11.8) mg/dL 01/11/20 01/11/20 01/11/20 Range/Units 03:49 05:50 07:43 Sodium (137-145) mmol/L Potassium (3.6-5.0) mmol/L Carbon Dioxide (22-30) mmol/L BUN (7-17) mg/dL Creatinine (0.6-1.2) mg/dL Glucose (65-100) mg/dL POC Glucose 177 H 169 H 178 H (70-105) mg/dL Albumin (3.9-5) g/dL Urine Creatinine (0.1-20.0) mg/dL Ur Total Protein 24 Hr (2-200) mg/dL Urine Total Protein (5-11.8) mg/dL 01/11/20 01/11/20 01/11/20 Range/Units 09:25 11:24 11:57 Sodium 134 L (137-145) mmol/L Potassium 3.4 L (3.6-5.0) mmol/L Carbon Dioxide 20 L (22-30) mmol/L BUN 6 L (7-17) mg/dL Creatinine 0.5 L (0.6-1.2) mg/dL Glucose 198 H (65-100) mg/dL POC Glucose 219 H 175 H (70-105) mg/dL Albumin 3.1 L (3.9-5) g/dL Urine Creatinine (0.1-20.0) mg/dL Ur Total Protein 24 Hr (2-200) mg/dL Urine Total Protein (5-11.8) mg/dL All other labs normal. Ultrasound: pending (Pending read), report reviewed, image reviewed, other Assessment and Plan IMPRESSIONS: 1. IUP 30 weeks 2. Pregestational diabetes with elevated values associated with drinking juice 3. CHTN with stable BP values on her Labetalol/LDA regimen 4. Morbid obesity 5. Mild proteinuria 6. History of GDM A2 RECOMMENDATIONS: 1. We will continue to address her elevated glucose values 2. She will continue with her Labetalol/LDA 3. With improved glucose control she can be managed on an outpatient basis 4. Dietary goals were addressed 5. Follow-up with [facility]
[2020-01-11] MEDS ORDERED: INSULIN NPH, HUMAN 100 UNIT/1 ML SUB-Q SCH (17:00)
[2020-01-11] MEDS ORDERED: INSULIN REGULAR, HUMAN 100 UNIT/ML 3ML VIAL SUB-Q SCH (17:00)
[2020-01-11 19:10] LABS: Alanine Aminotransferase 20 units/L (7-56); Blood Urea Nitrogen 8 mg/dL (7-17); Hemolysis Index 2
--- NOTE | 2020-01-11 19:15 | Progress Note ---
Assessment and Plan - Patient Problems (1) Chronic hypertension affecting Current Visit: Yes Status: Acute Plan to address problem: --TP elevated at 425, but BPs normalized with labetolol. Elevated TP possibly associated with uncontrolled diabetes --Continue home labetolol 100mg BID, titrate prn --Continue to monitor (2) Asthma Current Visit: Yes Status: Acute Plan to address problem: --Albuterol prn, titrate prn (3) 29 weeks gestation of Current Visit: Yes Status: Acute Plan to address problem: --Routine AP management, holding management including steriods, antibiotics unless indication for delivery (4) Gestational diabetes Current Visit: Yes Status: Acute Plan to address problem: --Continue insulin regimen 30N/15R AM and 15N/15R PM, titrate prn. Appreciated APA recs regarding insulin management. --Consistent carb diet --In coordination with hospitalist and APA for further management and transition to subQ when indicated (5) Hypokalemia Current Visit: Yes Status: Acute Plan to address problem: replete lytes prn Subjective - Subjective Date of service: 01/11/20 Principal diagnosis: elevated CBGs Interval history: Patient doing well. Understands the plan for care for aggressive insulin management of elevated CBGs. Patient admitted to dietary indiscretions at home with juice. Discussed the importance of dietary changes for best management of GDM. Denies labor complaints or PIH symptoms. Objective - Vital Signs Vital Signs: Vital Signs - 12hr 01/11/20 01/11/20 01/11/20 07:17 07:22 07:27 Temperature Pulse Rate 99 H 99 H 101 H Respiratory Rate Blood Pressure Blood Pressure [Right] O2 Sat by Pulse 98 98 98 Oximetry 01/11/20 01/11/20 01/11/20 07:32 07:37 07:40 Temperature 98.3 F Pulse Rate 103 H 100 H 103 H Respiratory 18 Rate Blood Pressure Blood Pressure 134/74 [Right] O2 Sat by Pulse 98 98 Oximetry 01/11/20 01/11/20 01/11/20 07:42 07:44 07:52 Temperature Pulse Rate 105 H 106 H 107 H Respiratory Rate Blood Pressure Blood Pressure [Right] O2 Sat by Pulse 97 92 96 Oximetry 01/11/20 01/11/20 01/11/20 07:57 08:02 08:04 Temperature Pulse Rate 108 H 108 H 107 H Respiratory Rate Blood Pressure Blood Pressure [Right] O2 Sat by Pulse 98 98 94 Oximetry 01/11/20 01/11/20 01/11/20 08:06 08:07 08:12 Temperature Pulse Rate 99 H 107 H 100 H Respiratory Rate Blood Pressure 134/74 Blood Pressure [Right] O2 Sat by Pulse 97 97 Oximetry 01/11/20 01/11/20 01/11/20 08:17 08:22 08:27 Temperature Pulse Rate 103 H 104 H 108 H Respiratory Rate Blood Pressure Blood Pressure [Right] O2 Sat by Pulse 100 96 98 Oximetry 01/11/20 01/11/20 01/11/20 08:32 08:37 08:42 Temperature Pulse Rate 107 H 103 H 106 H Respiratory Rate Blood Pressure Blood Pressure [Right] O2 Sat by Pulse 98 98 98 Oximetry 01/11/20 01/11/20 01/11/20 08:47 08:52 08:57 Temperature Pulse Rate 105 H 103 H 104 H Respiratory Rate Blood Pressure Blood Pressure [Right] O2 Sat by Pulse 99 98 99 Oximetry 01/11/20 01/11/20 01/11/20 09:02 09:07 09:09 Temperature Pulse Rate 112 H 110 H 103 H Respiratory Rate Blood Pressure Blood Pressure [Right] O2 Sat by Pulse 98 97 92 Oximetry 01/11/20 01/11/20 01/11/20 09:12 09:17 09:22 Temperature Pulse Rate 109 H 104 H 108 H Respiratory Rate Blood Pressure Blood Pressure [Right] O2 Sat by Pulse 97 98 98 Oximetry 01/11/20 01/11/20 01/11/20 09:27 09:32 09:37 Temperature Pulse Rate 109 H 103 H 104 H Respiratory Rate Blood Pressure Blood Pressure [Right] O2 Sat by Pulse 99 96 97 Oximetry 01/11/20 01/11/20 01/11/20 09:42 09:47 09:49 Temperature Pulse Rate 98 H 103 H 102 H Respiratory Rate Blood Pressure Blood Pressure [Right] O2 Sat by Pulse 96 95 94 Oximetry 01/11/20 01/11/20 01/11/20 09:52 09:55 09:57 Temperature Pulse Rate 94 H 91 H 103 H Respiratory Rate Blood Pressure Blood Pressure [Right] O2 Sat by Pulse 94 94 94 Oximetry 01/11/20 01/11/20 01/11/20 10:00 10:02 10:05 Temperature Pulse Rate 100 H 106 H 101 H Respiratory Rate Blood Pressure 137/80 Blood Pressure [Right] O2 Sat by Pulse 94 95 94 Oximetry 01/11/20 01/11/20 01/11/20 10:07 10:12 10:17 Temperature Pulse Rate 107 H 104 H 106 H Respiratory Rate Blood Pressure Blood Pressure [Right] O2 Sat by Pulse 97 97 99 Oximetry 01/11/20 01/11/20 01/11/20 10:22 10:27 10:32 Temperature Pulse Rate 109 H 108 H 103 H Respiratory Rate Blood Pressure Blood Pressure [Right] O2 Sat by Pulse 98 99 98 Oximetry 01/11/20 01/11/20 01/11/20 10:37 10:42 10:47 Temperature Pulse Rate 117 H 101 H 111 H Respiratory Rate Blood Pressure Blood Pressure [Right] O2 Sat by Pulse 98 99 99 Oximetry 01/11/20 01/11/20 01/11/20 10:50 10:52 10:57 Temperature Pulse Rate 109 H 110 H 94 H Respiratory Rate Blood Pressure 137/80 Blood Pressure [Right] O2 Sat by Pulse 92 98 98 Oximetry 01/11/20 01/11/20 01/11/20 11:02 11:07 11:12 Temperature Pulse Rate 100 H 113 H 102 H Respiratory Rate Blood Pressure 133/77 Blood Pressure [Right] O2 Sat by Pulse 99 99 97 Oximetry 01/11/20 01/11/20 01/11/20 11:17 11:22 11:27 Temperature Pulse Rate 104 H 103 H 96 H Respiratory Rate Blood Pressure Blood Pressure [Right] O2 Sat by Pulse 98 98 98 Oximetry 01/11/20 01/11/20 01/11/20 11:43 11:48 11:53 Temperature Pulse Rate 120 H 108 H 104 H Respiratory Rate Blood Pressure Blood Pressure [Right] O2 Sat by Pulse 98 98 97 Oximetry 01/11/20 01/11/20 01/11/20 11:58 12:03 12:08 Temperature Pulse Rate 109 H 105 H 107 H Respiratory Rate Blood Pressure Blood Pressure [Right] O2 Sat by Pulse 98 99 97 Oximetry 01/11/20 01/11/20 01/11/20 12:13 12:18 12:23 Temperature Pulse Rate 102 H 103 H 104 H Respiratory Rate Blood Pressure Blood Pressure [Right] O2 Sat by Pulse 98 98 98 Oximetry 01/11/20 01/11/20 01/11/20 12:28 12:33 12:38 Temperature Pulse Rate 104 H 108 H 106 H Respiratory Rate Blood Pressure Blood Pressure [Right] O2 Sat by Pulse 97 97 98 Oximetry 01/11/20 01/11/20 01/11/20 12:43 12:48 12:53 Temperature Pulse Rate 103 H 102 H 108 H Respiratory Rate Blood Pressure Blood Pressure [Right] O2 Sat by Pulse 97 97 98 Oximetry 01/11/20 01/11/20 01/11/20 12:58 13:03 13:08 Temperature Pulse Rate 104 H 103 H 102 H Respiratory Rate Blood Pressure Blood Pressure [Right] O2 Sat by Pulse 99 96 96 Oximetry 01/11/20 01/11/20 01/11/20 13:13 13:18 13:23 Temperature Pulse Rate 101 H 100 H 104 H Respiratory Rate Blood Pressure Blood Pressure [Right] O2 Sat by Pulse 98 92 99 Oximetry 01/11/20 01/11/20 01/11/20 13:28 13:30 13:33 Temperature Pulse Rate 101 H 100 H 103 H Respiratory Rate Blood Pressure 128/76 Blood Pressure [Right] O2 Sat by Pulse 99 99 Oximetry 01/11/20 01/11/20 01/11/20 13:38 13:43 13:48 Temperature Pulse Rate 100 H 103 H 100 H Respiratory Rate Blood Pressure Blood Pressure [Right] O2 Sat by Pulse 98 98 99 Oximetry 01/11/20 01/11/20 01/11/20 13:53 13:59 14:02 Temperature Pulse Rate 101 H 93 H 98 H Respiratory Rate Blood Pressure 153/81 Blood Pressure [Right] O2 Sat by Pulse 97 96 Oximetry 01/11/20 01/11/20 01/11/20 14:04 14:09 14:14 Temperature Pulse Rate 97 H 100 H 99 H Respiratory Rate Blood Pressure Blood Pressure [Right] O2 Sat by Pulse 99 98 99 Oximetry 01/11/20 01/11/20 01/11/20 14:19 14:24 14:29 Temperature Pulse Rate 101 H 97 H 104 H Respiratory Rate Blood Pressure Blood Pressure [Right] O2 Sat by Pulse 98 99 97 Oximetry 01/11/20 01/11/20 01/11/20 14:34 14:39 14:44 Temperature Pulse Rate 99 H 101 H 99 H Respiratory Rate Blood Pressure Blood Pressure [Right] O2 Sat by Pulse 99 98 99 Oximetry 01/11/20 01/11/20 01/11/20 14:49 14:54 14:59 Temperature Pulse Rate 99 H 103 H 98 H Respiratory Rate Blood Pressure Blood Pressure [Right] O2 Sat by Pulse 99 99 97 Oximetry 01/11/20 01/11/20 01/11/20 15:02 15:04 15:09 Temperature Pulse Rate 101 H 101 H 105 H Respiratory Rate Blood Pressure 121/53 Blood Pressure [Right] O2 Sat by Pulse 99 100 Oximetry 01/11/20 01/11/20 01/11/20 15:14 15:19 15:24 Temperature Pulse Rate 106 H 104 H 99 H Respiratory Rate Blood Pressure Blood Pressure [Right] O2 Sat by Pulse 99 98 99 Oximetry 01/11/20 01/11/20 01/11/20 15:29 15:48 15:53 Temperature Pulse Rate 105 H 107 H 100 H Respiratory Rate Blood Pressure Blood Pressure [Right] O2 Sat by Pulse 99 99 99 Oximetry 01/11/20 01/11/20 01/11/20 15:58 16:03 16:08 Temperature Pulse Rate 114 H 109 H 110 H Respiratory Rate Blood Pressure Blood Pressure [Right] O2 Sat by Pulse 98 98 99 Oximetry 01/11/20 01/11/20 01/11/20 16:13 16:18 16:23 Temperature Pulse Rate 102 H 113 H 108 H Respiratory Rate Blood Pressure Blood Pressure [Right] O2 Sat by Pulse 98 98 98 Oximetry 01/11/20 01/11/20 01/11/20 16:28 16:33 16:38 Temperature Pulse Rate 108 H 107 H 108 H Respiratory Rate Blood Pressure Blood Pressure [Right] O2 Sat by Pulse 98 99 99 Oximetry 01/11/20 01/11/20 01/11/20 16:43 16:48 16:53 Temperature Pulse Rate 109 H 110 H 105 H Respiratory Rate Blood Pressure Blood Pressure [Right] O2 Sat by Pulse 98 99 99 Oximetry 01/11/20 01/11/20 01/11/20 16:58 17:03 17:08 Temperature Pulse Rate 102 H 106 H 105 H Respiratory Rate Blood Pressure Blood Pressure [Right] O2 Sat by Pulse 99 100 97 Oximetry 01/11/20 01/11/20 01/11/20 17:13 17:18 17:23 Temperature Pulse Rate 109 H 103 H 102 H Respiratory Rate Blood Pressure Blood Pressure [Right] O2 Sat by Pulse 98 99 97 Oximetry 01/11/20 01/11/20 01/11/20 17:28 17:33 17:38 Temperature Pulse Rate 102 H 107 H 114 H Respiratory Rate Blood Pressure Blood Pressure [Right] O2 Sat by Pulse 97 98 96 Oximetry 01/11/20 01/11/20 01/11/20 17:43 17:44 17:55 Temperature Pulse Rate 107 H 108 H 30 L Respiratory Rate Blood Pressure Blood Pressure [Right] O2 Sat by Pulse 96 94 99 Oximetry 01/11/20 01/11/20 01/11/20 18:00 18:02 18:07 Temperature Pulse Rate 101 H 112 H 111 H Respiratory Rate Blood Pressure 134/60 Blood Pressure [Right] O2 Sat by Pulse 99 97 Oximetry 01/11/20 01/11/20 01/11/20 18:12 18:17 18:22 Temperature Pulse Rate 110 H 116 H 109 H Respiratory Rate Blood Pressure Blood Pressure [Right] O2 Sat by Pulse 98 99 100 Oximetry 01/11/20 01/11/20 01/11/20 18:27 18:32 18:37 Temperature Pulse Rate 106 H 103 H 100 H Respiratory Rate Blood Pressure Blood Pressure [Right] O2 Sat by Pulse 99 99 99 Oximetry 01/11/20 01/11/20 01/11/20 18:42 18:45 18:47 Temperature Pulse Rate 104 H 106 H 97 H Respiratory Rate Blood Pressure Blood Pressure [Right] O2 Sat by Pulse 99 90 100 Oximetry 01/11/20 01/11/20 01/11/20 18:52 18:57 19:02 Temperature Pulse Rate 99 H 106 H 105 H Respiratory Rate Blood Pressure 125/81 Blood Pressure [Right] O2 Sat by Pulse 99 99 97 Oximetry 01/11/20 01/11/20 19:06 19:07 Temperature Pulse Rate 107 H 104 H Respiratory Rate Blood Pressure Blood Pressure [Right] O2 Sat by Pulse 94 97 Oximetry - Exam Abdomen: Present: normal appearance, normal bowel sounds, other (gravid) FHR: category 1 Uterine Contraction Monitor Mode: External Uterine Contraction Pattern: Absent - Labs Labs: Abnormal Labs 01/10/20 01/10/20 01/10/20 00:21 00:25 02:40 WBC Hgb MCV MCH RDW Lymph % (Auto) [place] % (Auto) [place] # (Auto) Seg Neutrophils % Seg Neutrophils # Sodium 131 L Potassium Carbon Dioxide 15 L BUN Creatinine Glucose 374 H POC Glucose 381 H Hemoglobin A1c Albumin 3.3 L Ur Specific [place] 1.033 H Urine WBC (Auto) 34.0 H Urine Creatinine Ur Total Protein 24 Hr Urine Total Protein 01/10/20 01/10/20 01/10/20 03:00 04:11 05:06 WBC Hgb MCV MCH RDW Lymph % (Auto) [place] % (Auto) [place] # (Auto) Seg Neutrophils % Seg Neutrophils # Sodium Potassium Carbon Dioxide BUN Creatinine Glucose POC Glucose 335 H 305 H 328 H Hemoglobin A1c Albumin Ur Specific [place] Urine WBC (Auto) Urine Creatinine Ur Total Protein 24 Hr Urine Total Protein 01/10/20 01/10/20 01/10/20 06:22 08:04 08:04 WBC 14.2 H Hgb 9.5 L MCV 77 L MCH 24 L RDW 16.7 H Lymph % (Auto) 11.1 L [place] % (Auto) 8.8 H [place] # (Auto) 1.2 H Seg Neutrophils % 78.8 H Seg Neutrophils # 11.2 H Sodium Potassium Carbon Dioxide BUN Creatinine Glucose POC Glucose 295 H Hemoglobin A1c 10.3 H Albumin Ur Specific [place] Urine WBC (Auto) Urine Creatinine Ur Total Protein 24 Hr Urine Total Protein 01/10/20 01/10/20 01/10/20 08:23 09:31 10:00 WBC Hgb MCV MCH RDW Lymph % (Auto) [place] % (Auto) [place] # (Auto) Seg Neutrophils % Seg Neutrophils # Sodium Potassium Carbon Dioxide BUN Creatinine Glucose POC Glucose 293 H 287 H Hemoglobin A1c Albumin Ur Specific [place] Urine WBC (Auto) Urine Creatinine 88.7 H Ur Total Protein 24 Hr 425.00 H Urine Total Protein 17 H 01/10/20 01/10/20 01/10/20 10:34 11:35 12:23 WBC Hgb MCV MCH RDW Lymph % (Auto) [place] % (Auto) [place] # (Auto) Seg Neutrophils % Seg Neutrophils # Sodium Potassium Carbon Dioxide BUN Creatinine Glucose POC Glucose 317 H 293 H 335 H Hemoglobin A1c Albumin Ur Specific [place] Urine WBC (Auto) Urine Creatinine Ur Total Protein 24 Hr Urine Total Protein 01/10/20 01/10/20 01/10/20 13:19 14:15 14:49 WBC Hgb MCV MCH RDW Lymph % (Auto) [place] % (Auto) [place] # (Auto) Seg Neutrophils % Seg Neutrophils # Sodium 130 L Potassium Carbon Dioxide 16 L BUN Creatinine 0.5 L Glucose 284 H POC Glucose 265 H 264 H Hemoglobin A1c Albumin 3.1 L Ur Specific [place] Urine WBC (Auto) Urine Creatinine Ur Total Protein 24 Hr Urine Total Protein 01/10/20 01/10/20 01/10/20 16:39 18:31 19:14 WBC Hgb MCV MCH RDW Lymph % (Auto) [place] % (Auto) [place] # (Auto) Seg Neutrophils % Seg Neutrophils # Sodium 128 L Potassium Carbon Dioxide 17 L BUN Creatinine 0.5 L Glucose 321 H POC Glucose 258 H 299 H Hemoglobin A1c Albumin 2.8 L Ur Specific [place] Urine WBC (Auto) Urine Creatinine Ur Total Protein 24 Hr Urine Total Protein 01/10/20 01/10/20 01/10/20 19:46 21:44 23:42 WBC Hgb MCV MCH RDW Lymph % (Auto) [place] % (Auto) [place] # (Auto) Seg Neutrophils % Seg Neutrophils # Sodium Potassium Carbon Dioxide BUN Creatinine Glucose POC Glucose 257 H 300 H 253 H Hemoglobin A1c Albumin Ur Specific [place] Urine WBC (Auto) Urine Creatinine Ur Total Protein 24 Hr Urine Total Protein 01/11/20 01/11/20 01/11/20 00:50 01:41 03:49 WBC Hgb MCV MCH RDW Lymph % (Auto) [place] % (Auto) [place] # (Auto) Seg Neutrophils % Seg Neutrophils # Sodium 131 L Potassium 3.4 L Carbon Dioxide 18 L BUN Creatinine 0.5 L Glucose 230 H POC Glucose 191 H 177 H Hemoglobin A1c Albumin 3.1 L Ur Specific [place] Urine WBC (Auto) Urine Creatinine Ur Total Protein 24 Hr Urine Total Protein 01/11/20 01/11/20 01/11/20 05:50 07:43 09:25 WBC Hgb MCV MCH RDW Lymph % (Auto) [place] % (Auto) [place] # (Auto) Seg Neutrophils % Seg Neutrophils # Sodium Potassium Carbon Dioxide BUN Creatinine Glucose POC Glucose 169 H 178 H 219 H Hemoglobin A1c Albumin Ur Specific [place] Urine WBC (Auto) Urine Creatinine Ur Total Protein 24 Hr Urine Total Protein 01/11/20 01/11/20 01/11/20 11:24 11:57 15:11 WBC Hgb MCV MCH RDW Lymph % (Auto) [place] % (Auto) [place] # (Auto) Seg Neutrophils % Seg Neutrophils # Sodium 134 L Potassium 3.4 L Carbon Dioxide 20 L BUN 6 L Creatinine 0.5 L Glucose 198 H POC Glucose 175 H 171 H Hemoglobin A1c Albumin 3.1 L Ur Specific [place] Urine WBC (Auto) Urine Creatinine Ur Total Protein 24 Hr Urine Total Protein 01/11/20 01/11/20 17:12 18:33 WBC Hgb MCV MCH RDW Lymph % (Auto) [place] % (Auto) [place] # (Auto) Seg Neutrophils % Seg Neutrophils # Sodium 131 L Potassium Carbon Dioxide 18 L BUN Creatinine Glucose 188 H POC Glucose 184 H Hemoglobin A1c Albumin 3.0 L Ur Specific [place] Urine WBC (Auto) Urine Creatinine Ur Total Protein 24 Hr Urine Total Protein Laboratory Results - last 24 hr 01/10/20 01/10/20 01/10/20 10:00 19:14 19:46 Sodium 128 L Potassium 3.7 Chloride 100.0 Carbon Dioxide 17 L Anion Gap 15 BUN 10 Creatinine 0.5 L Estimated GFR > 60 BUN/Creatinine Ratio 20 Glucose 321 H POC Glucose 257 H Calcium 8.7 Total Bilirubin 0.30 AST 17 ALT 19 Alkaline Phosphatase 104 Total Protein 6.5 Albumin 2.8 L Albumin/Globulin Ratio 0.8 Urine Total Volume 2500 Urine Creatinine 88.7 H Ur Creatinine 24 Hour 2.2 Ur Total Protein 24 Hr 425.00 H Urine Total Protein 17 H 01/10/20 01/10/20 01/11/20 21:44 23:42 00:50 Sodium 131 L Potassium 3.4 L Chloride 101.1 Carbon Dioxide 18 L Anion Gap 15 BUN 8 Creatinine 0.5 L Estimated GFR > 60 BUN/Creatinine Ratio 16 Glucose 230 H POC Glucose 300 H 253 H Calcium 8.9 Total Bilirubin 0.20 AST 18 ALT 20 Alkaline Phosphatase 105 Total Protein 6.6 Albumin 3.1 L Albumin/Globulin Ratio 0.9 Urine Total Volume Urine Creatinine Ur Creatinine 24 Hour Ur Total Protein 24 Hr Urine Total Protein 01/11/20 01/11/20 01/11/20 01:41 03:49 05:50 Sodium Potassium Chloride Carbon Dioxide Anion Gap BUN Creatinine Estimated GFR BUN/Creatinine Ratio Glucose POC Glucose 191 H 177 H 169 H Calcium Total Bilirubin AST ALT Alkaline Phosphatase Total Protein Albumin Albumin/Globulin Ratio Urine Total Volume Urine Creatinine Ur Creatinine 24 Hour Ur Total Protein 24 Hr Urine Total Protein 01/11/20 01/11/20 01/11/20 07:43 09:25 11:24 Sodium 134 L Potassium 3.4 L Chloride 103.4 Carbon Dioxide 20 L Anion Gap 14 BUN 6 L Creatinine 0.5 L Estimated GFR > 60 BUN/Creatinine Ratio 12 Glucose 198 H POC Glucose 178 H 219 H Calcium 8.9 Total Bilirubin 0.30 AST 19 ALT 20 Alkaline Phosphatase 108 Total Protein 6.7 Albumin 3.1 L Albumin/Globulin Ratio 0.9 Urine Total Volume Urine Creatinine Ur Creatinine 24 Hour Ur Total Protein 24 Hr Urine Total Protein 01/11/20 01/11/20 01/11/20 11:57 15:11 17:12 Sodium Potassium Chloride Carbon Dioxide Anion Gap BUN Creatinine Estimated GFR BUN/Creatinine Ratio Glucose POC Glucose 175 H 171 H 184 H Calcium Total Bilirubin AST ALT Alkaline Phosphatase Total Protein Albumin Albumin/Globulin Ratio Urine Total Volume Urine Creatinine Ur Creatinine 24 Hour Ur Total Protein 24 Hr Urine Total Protein 01/11/20 18:33 Sodium 131 L Potassium 3.8 Chloride 101.7 Carbon Dioxide 18 L Anion Gap 15 BUN 8 Creatinine Estimated GFR BUN/Creatinine Ratio Glucose 188 H POC Glucose Calcium 9.0 Total Bilirubin 0.30 AST 20 ALT 20 Alkaline Phosphatase 109 Total Protein 7.0 Albumin 3.0 L Albumin/Globulin Ratio 0.8 Urine Total Volume Urine Creatinine Ur Creatinine 24 Hour Ur Total Protein 24 Hr Urine Total Protein
[2020-01-11 19:17] LABS: BUN/Creatinine Ratio 13
[2020-01-12 01:40] LABS: Alanine Aminotransferase 17 units/L (7-56); Albumin 3.1 g/dL (3.9-5); Blood Urea Nitrogen 8 mg/dL (7-17); Calcium 8.7 mg/dL (8.4-10.2); Hemolysis Index 5
[2020-01-12 01:49] LABS: BUN/Creatinine Ratio 13
[2020-01-12] MEDS: SODIUM CHLORIDE 0.45% 1000 ML 1,000 ML IV SCH ×4 (02:51→22:19)
--- NOTE | 2020-01-12 07:09 | Ultrasound Report ---
ULTRASOUND OBSTETRIC INDICATION / CLINICAL INFORMATION: 29 weeks, gestational diabetes, CBGs >300. Clinical Gestational Age (GA): 29 weeks 6 days TECHNIQUE: Transabdominal. COMPARISON: None available. FINDINGS: There is a single intrauterine . Biparietal Diameter = 7.48 cm = 30 weeks, 0 day(s). Head Circumference = 27.5 cm = 30 weeks, 1 day(s). Abdominal Circumference = 26.4 cm = 30 weeks, 4 day(s). Femur Length = 5.74 cm = 30 weeks, 1 day(s). Average Ultrasound Age (AUA) = 30 weeks, 2 day(s). Heart Rate: 141 beats per minute. Estimated Weight in grams (if calculated): 1549 g +/- 229 g Estimated Weight Growth Percentile (if calculated): Position: cephalic. Cervix: closed. Length in cm (if measured): Placenta: posterior and free of the os. Amniotic Fluid Volume: normal Amniotic Fluid Index (LEON) in cm (if calculated): 23.1. Maternal Adnexa: No significant abnormality. IMPRESSION: 1. Single, living intrauterine with estimated sonographic age of 30 weeks, 2 day(s). 2. No significant sonographic abnormality. Signer Name: Diony Dixon MD Signed: 01/10/2020 5:21 PM Workstation Name: [id number]
--- NOTE | 2020-01-12 07:09 | Ultrasound Report ---
ULTRASOUND BIOPHYSICAL PROFILE INDICATION: 29 weeks, gestational diabetes, CBGs >300. COMPARISON: OB ultrasound same day FINDINGS: BREATHING MOVEMENT = 2 GROSS BODY MOVEMENT = 2 TONE = 2 QUALITATIVE AMNIOTIC FLUID VOLUME = 2 TOTAL BIOPHYSICAL SCORE = 09/12 AMNIOTIC FLUID INDEX (cm) = 23.1 PRESENTATION: Cephalic. HEART RATE (beats per minute): 141 IMPRESSION: 1. biophysical profile = 09/12 Signer Name: Diony Dixon MD Signed: 01/10/2020 5:22 PM Workstation Name: [id number]
[2020-01-12 07:34] LABS: Alanine Aminotransferase 19 units/L (7-56); Blood Urea Nitrogen 7 mg/dL (7-17); Calcium 8.9 mg/dL (8.4-10.2); Hemolysis Index 0
[2020-01-12 08:04] LABS: BUN/Creatinine Ratio 14
[2020-01-12] MEDS: INSULIN NPH, HUMAN 100 UNIT/1 ML SUB-Q SCH (08:57)
--- NOTE | 2020-01-12 08:57 | Progress Note ---
Assessment and Plan Patient stable at bedside: no OB complaints Plan as per [facility] 1: increase insulin to the following 44NPH,22R at breakfast, 22Regular at dinn er, 22 NPH at bedtime 2: iron replacement 3: Daily labs, monitor K levels closely 4: US for BPP/LEON 5: continue labetalol 6: continue albuterol nebs [facility] to review blood glucose trend in AM Millie Loera MD Subjective - Subjective Date of service: 01/12/20 Principal diagnosis: uncontrolled IDDM Objective - Vital Signs Vital Signs: Vital Signs - 12hr 01/11/20 01/11/20 01/12/20 21:37 22:00 02:40 Temperature 98 F Pulse Rate 98 H 96 H Respiratory 18 Rate Blood Pressure 136/88 127/65 Blood Pressure [Right] 01/12/20 01/12/20 01/12/20 04:00 07:28 07:29 Temperature 98.2 F 98.4 F Pulse Rate 100 H 100 H Respiratory 16 20 Rate Blood Pressure 137/72 Blood Pressure 137/72 [Right] - Exam Breasts: deferred Cardiovascular: Regular rate Lungs: Clear to auscultation Abdomen: Present: normal appearance, soft, normal bowel sounds FHR: category 1 - Labs Labs: Abnormal Labs 01/10/20 01/10/20 01/10/20 00:21 00:25 02:40 WBC Hgb MCV MCH RDW Lymph % (Auto) [facility] % (Auto) [facility] # (Auto) Seg Neutrophils % Seg Neutrophils # Sodium 131 L Potassium Carbon Dioxide 15 L BUN Creatinine Glucose 374 H POC Glucose 381 H Hemoglobin A1c Albumin 3.3 L Ur Specific [place] 1.033 H Urine WBC (Auto) 34.0 H Urine Creatinine Ur Total Protein 24 Hr Urine Total Protein 01/10/20 01/10/20 01/10/20 03:00 04:11 05:06 WBC Hgb MCV MCH RDW Lymph % (Auto) [facility] % (Auto) [facility] # (Auto) Seg Neutrophils % Seg Neutrophils # Sodium Potassium Carbon Dioxide BUN Creatinine Glucose POC Glucose 335 H 305 H 328 H Hemoglobin A1c Albumin Ur Specific [place] Urine WBC (Auto) Urine Creatinine Ur Total Protein 24 Hr Urine Total Protein 01/10/20 01/10/20 01/10/20 06:22 08:04 08:04 WBC 14.2 H Hgb 9.5 L MCV 77 L MCH 24 L RDW 16.7 H Lymph % (Auto) 11.[address] % (Auto) 8.[address] [facility] # (Auto) 1.2 H Seg Neutrophils % 78.8 H Seg Neutrophils # 11.2 H Sodium Potassium Carbon Dioxide BUN Creatinine Glucose POC Glucose 295 H Hemoglobin A1c 10.3 H Albumin Ur Specific [place] Urine WBC (Auto) Urine Creatinine Ur Total Protein 24 Hr Urine Total Protein 01/10/20 01/10/20 01/10/20 08:23 09:31 10:00 WBC Hgb MCV MCH RDW Lymph % (Auto) [facility] % (Auto) [facility] # (Auto) Seg Neutrophils % Seg Neutrophils # Sodium Potassium Carbon Dioxide BUN Creatinine Glucose POC Glucose 293 H 287 H Hemoglobin A1c Albumin Ur Specific [place] Urine WBC (Auto) Urine Creatinine 88.7 H Ur Total Protein 24 Hr 425.00 H Urine Total Protein 17 H 01/10/20 01/10/20 01/10/20 10:34 11:35 12:23 WBC Hgb MCV MCH RDW Lymph % (Auto) [facility] % (Auto) [facility] # (Auto) Seg Neutrophils % Seg Neutrophils # Sodium Potassium Carbon Dioxide BUN Creatinine Glucose POC Glucose 317 H 293 H 335 H Hemoglobin A1c Albumin Ur Specific [place] Urine WBC (Auto) Urine Creatinine Ur Total Protein 24 Hr Urine Total Protein 01/10/20 01/10/20 01/10/20 13:19 14:15 14:49 WBC Hgb MCV MCH RDW Lymph % (Auto) [facility] % (Auto) [facility] # (Auto) Seg Neutrophils % Seg Neutrophils # Sodium 130 L Potassium Carbon Dioxide 16 L BUN Creatinine 0.5 L Glucose 284 H POC Glucose 265 H 264 H Hemoglobin A1c Albumin 3.1 L Ur Specific [place] Urine WBC (Auto) Urine Creatinine Ur Total Protein 24 Hr Urine Total Protein 01/10/20 01/10/20 01/10/20 16:39 18:31 19:14 WBC Hgb MCV MCH RDW Lymph % (Auto) [facility] % (Auto) [facility] # (Auto) Seg Neutrophils % Seg Neutrophils # Sodium 128 L Potassium Carbon Dioxide 17 L BUN Creatinine 0.5 L Glucose 321 H POC Glucose 258 H 299 H Hemoglobin A1c Albumin 2.8 L Ur Specific [place] Urine WBC (Auto) Urine Creatinine Ur Total Protein 24 Hr Urine Total Protein 01/10/20 01/10/20 01/10/20 19:46 21:44 23:42 WBC Hgb MCV MCH RDW Lymph % (Auto) [facility] % (Auto) [facility] # (Auto) Seg Neutrophils % Seg Neutrophils # Sodium Potassium Carbon Dioxide BUN Creatinine Glucose POC Glucose 257 H 300 H 253 H Hemoglobin A1c Albumin Ur Specific [place] Urine WBC (Auto) Urine Creatinine Ur Total Protein 24 Hr Urine Total Protein 01/11/20 01/11/20 01/11/20 00:50 01:41 03:49 WBC Hgb MCV MCH RDW Lymph % (Auto) [facility] % (Auto) [facility] # (Auto) Seg Neutrophils % Seg Neutrophils # Sodium 131 L Potassium 3.4 L Carbon Dioxide 18 L BUN Creatinine 0.5 L Glucose 230 H POC Glucose 191 H 177 H Hemoglobin A1c Albumin 3.1 L Ur Specific [place] Urine WBC (Auto) Urine Creatinine Ur Total Protein 24 Hr Urine Total Protein 01/11/20 01/11/20 01/11/20 05:50 07:43 09:25 WBC Hgb MCV MCH RDW Lymph % (Auto) [facility] % (Auto) [facility] # (Auto) Seg Neutrophils % Seg Neutrophils # Sodium Potassium Carbon Dioxide BUN Creatinine Glucose POC Glucose 169 H 178 H 219 H Hemoglobin A1c Albumin Ur Specific [place] Urine WBC (Auto) Urine Creatinine Ur Total Protein 24 Hr Urine Total Protein 01/11/20 01/11/20 01/11/20 11:24 11:57 15:11 WBC Hgb MCV MCH RDW Lymph % (Auto) [facility] % (Auto) [facility] # (Auto) Seg Neutrophils % Seg Neutrophils # Sodium 134 L Potassium 3.4 L Carbon Dioxide 20 L BUN 6 L Creatinine 0.5 L Glucose 198 H POC Glucose 175 H 171 H Hemoglobin A1c Albumin 3.1 L Ur Specific [place] Urine WBC (Auto) Urine Creatinine Ur Total Protein 24 Hr Urine Total Protein 01/11/20 01/11/20 01/11/20 17:12 18:33 19:20 WBC Hgb MCV MCH RDW Lymph % (Auto) [facility] % (Auto) [facility] # (Auto) Seg Neutrophils % Seg Neutrophils # Sodium 131 L Potassium Carbon Dioxide 18 L BUN Creatinine Glucose 188 H POC Glucose 184 H 155 H Hemoglobin A1c Albumin 3.0 L Ur Specific [place] Urine WBC (Auto) Urine Creatinine Ur Total Protein 24 Hr Urine Total Protein 01/11/20 01/11/20 01/12/20 21:07 23:23 00:23 WBC Hgb MCV MCH RDW Lymph % (Auto) [facility] % (Auto) [facility] # (Auto) Seg Neutrophils % Seg Neutrophils # Sodium 132 L Potassium Carbon Dioxide 17 L BUN Creatinine Glucose 164 H POC Glucose 154 H 146 H Hemoglobin A1c Albumin 3.1 L Ur Specific [place] Urine WBC (Auto) Urine Creatinine Ur Total Protein 24 Hr Urine Total Protein 01/12/20 01/12/20 05:09 06:28 WBC Hgb MCV MCH RDW Lymph % (Auto) [facility] % (Auto) [facility] # (Auto) Seg Neutrophils % Seg Neutrophils # Sodium 135 L Potassium Carbon Dioxide 19 L BUN Creatinine 0.5 L Glucose 187 H POC Glucose 160 H Hemoglobin A1c Albumin 3.0 L Ur Specific [place] Urine WBC (Auto) Urine Creatinine Ur Total Protein 24 Hr Urine Total Protein Laboratory Results - last 24 hr 01/10/20 01/11/20 01/11/20 10:00 09:25 11:24 Sodium 134 L Potassium 3.4 L Chloride 103.4 Carbon Dioxide 20 L Anion Gap 14 BUN 6 L Creatinine 0.5 L Estimated GFR > 60 BUN/Creatinine Ratio 12 Glucose 198 H POC Glucose 219 H Calcium 8.9 Total Bilirubin 0.30 AST 19 ALT 20 Alkaline Phosphatase 108 Total Protein 6.7 Albumin 3.1 L Albumin/Globulin Ratio 0.9 Urine Total Volume 2500 Urine Creatinine 88.7 H Ur Creatinine 24 Hour 2.2 Ur Total Protein 24 Hr 425.00 H Urine Total Protein 17 H 01/11/20 01/11/20 01/11/20 11:57 15:11 17:12 Sodium Potassium Chloride Carbon Dioxide Anion Gap BUN Creatinine Estimated GFR BUN/Creatinine Ratio Glucose POC Glucose 175 H 171 H 184 H Calcium Total Bilirubin AST ALT Alkaline Phosphatase Total Protein Albumin Albumin/Globulin Ratio Urine Total Volume Urine Creatinine Ur Creatinine 24 Hour Ur Total Protein 24 Hr Urine Total Protein 01/11/20 01/11/20 01/11/20 18:33 19:20 21:07 Sodium 131 L Potassium 3.8 Chloride 101.7 Carbon Dioxide 18 L Anion Gap 15 BUN 8 Creatinine 0.6 Estimated GFR > 60 BUN/Creatinine Ratio 13 Glucose 188 H POC Glucose 155 H 154 H Calcium 9.0 Total Bilirubin 0.30 AST 20 ALT 20 Alkaline Phosphatase 109 Total Protein 7.0 Albumin 3.0 L Albumin/Globulin Ratio 0.8 Urine Total Volume Urine Creatinine Ur Creatinine 24 Hour Ur Total Protein 24 Hr Urine Total Protein 01/11/20 01/12/20 01/12/20 23:23 00:23 05:09 Sodium 132 L Potassium 3.6 Chloride 102.5 Carbon Dioxide 17 L Anion Gap 16 BUN 8 Creatinine 0.6 Estimated GFR > 60 BUN/Creatinine Ratio 13 Glucose 164 H POC Glucose 146 H 160 H Calcium 8.7 Total Bilirubin 0.20 AST 20 ALT 17 Alkaline Phosphatase 108 Total Protein 6.6 Albumin 3.1 L Albumin/Globulin Ratio 0.9 Urine Total Volume Urine Creatinine Ur Creatinine 24 Hour Ur Total Protein 24 Hr Urine Total Protein 01/12/20 06:28 Sodium 135 L Potassium 3.7 Chloride 103.9 Carbon Dioxide 19 L Anion Gap 16 BUN 7 Creatinine 0.5 L Estimated GFR > 60 BUN/Creatinine Ratio 14 Glucose 187 H POC Glucose Calcium 8.9 Total Bilirubin 0.30 AST 19 ALT 19 Alkaline Phosphatase 105 Total Protein 6.6 Albumin 3.0 L Albumin/Globulin Ratio 0.8 Urine Total Volume Urine Creatinine Ur Creatinine 24 Hour Ur Total Protein 24 Hr Urine Total Protein
[2020-01-12] MEDS: INSULIN REGULAR, HUMAN 100 UNIT/ML 3ML VIAL SUB-Q SCH (09:01)
[2020-01-12] MEDS: NITROFURANTOIN MONOHYD/M-CRYST 100 MG CAP PO SCH ×2 (10:40→22:08)
--- NOTE | 2020-01-12 15:22 | Progress Note ---
Subjective Date of service: 01/12/20 Principal diagnosis: uncontrolled IDDM Interval history: Patient is a 34 year old female patient who presents with elevated blood sugar. hospitalist is consulted to see patient due to elevated blood sugar. On assessment, she reports urine frequency and urgency. She also report polydipsia. patient has past medical hx of gestational diabetes that resolved af ter delivery. She denies alcohol, illicit drug use and tobabbaco use. lung sound is clear to auscultation and heart rate is regular. Urinalysis shows elevated Urine WBC. lab work show potassium 4.0, sodium 131, serum glycose 374. 01/10: Blood glucose stable, no new complaints. Continue current management. 01/11 patient is alert and oriented and offers no specific complaints. She denies any excessive urination or thirst. Denies weakness Lab results reviewed Assessment and plan: Gestational diabetes A1c 10.3 Accu-Cheks reviewed Well controlled Continue basal insulin and regular insulin as ordered Urinary tract infection Urine cultures results reviewed Greater than 2 microorganisms Likely contamination Continue empiric Macrobid Hyponatremia Mild No need for hyponatremia work-up Monitor electrolytes as needed Hypokalemia Improved Microcytic anemia Related to and likely NEREYDA H&H stable Morbid obesity BMI 48.1 Likely secondary to excess calories Importance of diet, weight loss and daily exercise was emphasized Objective - Constitutional Vitals: Vital Signs - 12hr 01/12/20 01/12/20 01/12/20 04:00 07:28 07:29 Temperature 98.2 F 98.4 F Pulse Rate 100 H 100 H Respiratory 16 20 Rate Blood Pressure 137/72 Blood Pressure 137/72 [Right] O2 Sat by Pulse Oximetry 01/12/20 01/12/20 01/12/20 10:24 10:25 12:47 Temperature Pulse Rate 113 H 113 H 104 H Respiratory Rate Blood Pressure 122/67 122/67 Blood Pressure [Right] O2 Sat by Pulse 99 Oximetry 01/12/20 12:49 Temperature 98.4 F Pulse Rate 97 H Respiratory 20 Rate Blood Pressure 117/63 Blood Pressure 117/63 [Right] O2 Sat by Pulse 99 Oximetry General appearance: Present: no acute distress - EENT Eyes: PERRL, EOM intact ENT: hearing intact, clear oral mucosa - Neck Neck: supple, normal ROM - Respiratory Respiratory effort: normal Respiratory: bilateral: CTA - Breasts Breasts: deferred - Cardiovascular Rhythm: regular Heart Sounds: Present: S1 & S2 Extremity abnormal: edema - Gastrointestinal General gastrointestinal: Present: soft, non-tender, other (Protuberant secondary to ) Rectal Exam: deferred - Genitourinary Female genitourinary: deferred - Integumentary Integumentary: clear - Musculoskeletal Musculoskeletal: strength equal bilaterally - Neurologic Neurologic: no focal deficits - Psychiatric Psychiatric: appropriate mood/affect - Labs CBC & Chem 7: 01/10/20 08:04 01/12/20 06:28 Labs: Abnormal lab results 01/11/20 01/11/20 01/11/20 Range/Units 17:12 18:33 19:20 Sodium 131 L (137-145) mmol/L Carbon Dioxide 18 L (22-30) mmol/L Creatinine (0.6-1.2) mg/dL Glucose 188 H (65-100) mg/dL POC Glucose 184 H 155 H (70-105) mg/dL Albumin 3.0 L (3.9-5) g/dL 01/11/20 01/11/20 01/12/20 Range/Units 21:07 23:23 00:23 Sodium 132 L (137-145) mmol/L Carbon Dioxide 17 L (22-30) mmol/L Creatinine (0.6-1.2) mg/dL Glucose 164 H (65-100) mg/dL POC Glucose 154 H 146 H (70-105) mg/dL Albumin 3.1 L (3.9-5) g/dL 01/12/20 01/12/20 01/12/20 Range/Units 05:09 06:28 11:30 Sodium 135 L (137-145) mmol/L Carbon Dioxide 19 L (22-30) mmol/L Creatinine 0.5 L (0.6-1.2) mg/dL Glucose 187 H (65-100) mg/dL POC Glucose 160 H 226 H (70-105) mg/dL Albumin 3.0 L (3.9-5) g/dL
[2020-01-12] MEDS ORDERED: INSULIN NPH, HUMAN 100 UNIT/1 ML SUB-Q SCH ×2 (17:00→22:00)
[2020-01-12] MEDS ORDERED: INSULIN REGULAR, HUMAN 100 UNIT/ML 3ML VIAL SUB-Q SCH ×2 (17:00)
--- NOTE | 2020-01-12 18:26 | Ultrasound Report ---
Limited OB Ultrasound Biophysical profile HISTORY: BPP/LEON. TECHNIQUE: Grayscale and color imaging performed. COMPARISON: OB ultrasound from 2 days prior FINDINGS: Very limited exam shows a single viable intrauterine gestation with heart rate of 141 bpm a nd LEON of 19 cm. On biophysical profile, the fetus received a score of 2 out of 2 for breathing, movement, tone, and A FI for a total score of 8 out of 8. IMPRESSION: 1. LEON of 19 cm. 2. Normal BPP. Signer Name: Nacho Danielson MD Signed: 01/12/2020 6:22 PM Workstation Name: [id number]
[2020-01-12 18:28] LABS: Alanine Aminotransferase 20 units/L (7-56); Blood Urea Nitrogen 5 mg/dL (7-17); Hemolysis Index 4
[2020-01-12 18:33] LABS: BUN/Creatinine Ratio 10
[2020-01-12 19:30] LABS: Alanine Aminotransferase 17 units/L (7-56); Blood Urea Nitrogen 5 mg/dL (7-17); Calcium 8.9 mg/dL (8.4-10.2); Hemolysis Index 3
[2020-01-12 19:36] LABS: BUN/Creatinine Ratio 8
[2020-01-12] MEDS: FERROUS SULFATE 325 MG TAB PO SCH (22:10)
[2020-01-13 06:22] LABS: Basophils % (Auto) 0.2 % (0.0-1.8); Eosinophils # (Auto) 0.2 K/mm3 (0.0-0.4); Eosinophils % (Auto) 1.7 % (0.0-4.3); Hematocrit 27.3 % (30.3-42.9); Hemoglobin 9.1 gm/dl (10.1-14.3); Lymphocytes # (Auto) 1.7 K/mm3 (1.2-5.4); Lymphocytes % (Auto) 17.4 % (13.4-35.0); Mean Corpuscular HGB Conc 34 % (30-34); Mean Corpuscular Volume 75 fl (79-97); Monocytes # (Auto) 0.9 K/mm3 (0.0-0.8); Monocytes % (Auto) 9.3 % (0.0-7.3); Platelet Count 287 K/mm3 (140-440); Red Blood Count 3.64 M/mm3 (3.65-5.03); Red Cell Distribution Width 17.2 % (13.2-15.2)
[2020-01-13] MEDS: SODIUM CHLORIDE 0.45% 1000 ML 1,000 ML IV SCH (06:30)
[2020-01-13] MEDS ORDERED: INSULIN REGULAR, HUMAN 100 UNIT/ML 3ML VIAL SUB-Q SCH ×2 (06:45→08:00)
[2020-01-13] MEDS ORDERED: INSULIN NPH, HUMAN 100 UNIT/1 ML SUB-Q SCH ×3 (06:45→22:00)
[2020-01-13] MEDS: FERROUS SULFATE 325 MG TAB PO SCH ×2 (11:13→22:30)
[2020-01-13] MEDS: NITROFURANTOIN MONOHYD/M-CRYST 100 MG CAP PO SCH ×2 (11:30→22:30)
--- NOTE | 2020-01-13 12:51 | Consultation ---
History of Present Illness Consult date: 01/13/20 Requesting physician: SHOSHANA MULLER History of present illness: Patient is a 34 YO A1 at 30 2/7weeks due to reported home glucose values into the 500s. HOSPITAL COURSE She has had significantly elevated glucose values noted this admission that has required insulin supplementation. She admits to having been drinking juices at home prior to her glucose spike. She was diagnosed with GDM at @ 16 weeks, which by definition makes her a newly diagnosed diabetic. She has been seen by [facility] and she was on insulin prior to this admission of 10R/20N AM and 10R/10N PM. HbA1c is noted at 10.6 earlier in preg Patient has a medical risks associated with her history of Class III Obesity and chronic hypertension which has been managed on labetolol 100mg BID and aspirin. She denied any headaches or visual changes. 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 with reported negative workup) Past Surgical History: section (x1) Family/Genetic History: diabetes - Obstetrical History : 3 Medications and Allergies Allergies Allergy/AdvReac Type Severity Reaction Status Date / Time No Known Allergies Allergy Verified 08/31/19 12:40 Home Medications Medication Instructions Recorded Confirmed Last Taken Type Aspirin [Adult Aspirin] 81 mg PO DAILY 01/12/20 01/12/20 01/09/20 History Labetalol 100mg TAB 100 mg PO BID 01/12/20 01/12/20 01/09/20 History Active Meds: Active Medications Albuterol (Proventil) 2.5 mg IH QIDRT PRN PRN Reason: Shortness Of Breath Ferrous Sulfate (Feosol) 325 mg PO BID [facility] Last Admin: 01/13/20 11:13 Dose: 325 mg Documented by: Sodium Chloride (Nacl 0.45% 1000 Ml) 1,000 mls @ 150 mls/hr IV DIRECT [facility] Last Admin: 01/13/20 06:30 Dose: 150 mls/hr Documented by: Insulin Human NPH (Humulin N) 22 unit SUB-Q QHS [facility] Last Admin: 01/12/20 22:11 Dose: 22 unit Documented by: Insulin Human NPH (Humulin N) 44 unit SUB-Q QDDIAB [facility] Last Admin: 01/13/20 06:58 Dose: 44 unit Documented by: Insulin Human Regular (Humulin R) 24 unit SUB-Q QDDIAB [facility] Last Admin: 01/13/20 06:58 Dose: 24 unit Documented by: Insulin Human Regular (Humulin R) 22 unit SUB-Q QPMDIAB [facility] Last Admin: 01/12/20 17:39 Dose: 22 unit Documented by: Labetalol HCl (Labetalol) 100 mg PO BID [facility] Last Admin: 01/13/20 11:13 Dose: 100 mg Documented by: Nitrofurantoin Macrocrystals (Macrobid) 100 mg PO Q12HR [facility] Last Admin: 01/12/20 22:08 Dose: 100 mg Documented by: - Vital Signs Vital signs: Vital Signs Pulse BP 133 H 141/97 01/10/20 00:00 01/10/20 00:00 Temp Pulse Resp BP Pulse Ox 98.2 F 107 H 16 133/70 100 01/13/20 08:00 01/13/20 11:15 01/13/20 08:00 01/13/20 11:15 01/13/20 11:15 Results Result Diagrams: 01/13/20 05:57 01/12/20 18:49 Abnormal lab results 01/12/20 01/12/20 01/12/20 Range/Units 13:34 15:51 18:49 RBC (3.65-5.03) M/mm3 Hgb (10.1-14.3) gm/dl Hct (30.3-42.9) % MCV (79-97) fl MCH (28-32) pg RDW (13.2-15.2) % Price % (Auto) (0.0-7.3) % Price # (Auto) (0.0-0.8) K/mm3 Seg Neutrophils % (40.0-70.0) % Sodium 133 L 132 L (137-145) mmol/L Carbon Dioxide 17 L 17 L (22-30) mmol/L BUN 5 L 5 L (7-17) mg/dL Creatinine 0.5 L (0.6-1.2) mg/dL Glucose 228 H 243 H (65-100) mg/dL POC Glucose 195 H (70-105) mg/dL Albumin 3.0 L 3.0 L (3.9-5) g/dL 01/12/20 01/13/20 01/13/20 Range/Units 20:36 05:57 06:17 RBC 3.64 L (3.65-5.03) M/mm3 Hgb 9.1 L (10.1-14.3) gm/dl Hct 27.3 L (30.3-42.9) % MCV 75 L (79-97) fl MCH 25 L (28-32) pg RDW 17.2 H (13.2-15.2) % Price % (Auto) 9.3 H (0.0-7.3) % Price # (Auto) 0.9 H (0.0-0.8) K/mm3 Seg Neutrophils % 71.4 H (40.0-70.0) % Sodium (137-145) mmol/L Carbon Dioxide (22-30) mmol/L BUN (7-17) mg/dL Creatinine (0.6-1.2) mg/dL Glucose (65-100) mg/dL POC Glucose 205 H 137 H (70-105) mg/dL Albumin (3.9-5) g/dL 01/13/20 Range/Units 11:16 RBC (3.65-5.03) M/mm3 Hgb (10.1-14.3) gm/dl Hct (30.3-42.9) % MCV (79-97) fl MCH (28-32) pg RDW (13.2-15.2) % Price % (Auto) (0.0-7.3) % Price # (Auto) (0.0-0.8) K/mm3 Seg Neutrophils % (40.0-70.0) % Sodium (137-145) mmol/L Carbon Dioxide (22-30) mmol/L BUN (7-17) mg/dL Creatinine (0.6-1.2) mg/dL Glucose (65-100) mg/dL POC Glucose 168 H (70-105) mg/dL Albumin (3.9-5) g/dL All other labs normal. Assessment and Plan 1. Cooper IUP at 30 2/7 weeks 2. GDM A2 (HbA1c at 10.3% on 01/10/20) 3. CHTN with Superimposed Preeclampsia - Patient Denies having earlier 24 Hour Urine performed 4. MO 5. Anemia Recommendations 1. PIH labs q week while in house 2. Continue accuchecks fastings and 2PP's 3. Currently on 44N/24R in am and 22R dinner and 22R at lunch Will increase Insulin am pending lunch but will plan to increase to 30R dinner and 30N bedtime tonight 4. BPP q week while in house 5. Iron BID 6. Nurse to call me after PPL accucheck to adjust all Insulin
--- NOTE | 2020-01-13 15:20 | Progress Note ---
Assessment and Plan Assessment and plan: Patient is a 34 year old female patient who presents with elevated blood sugar. hospitalist is consulted to see patient due to elevated blood sugar. On assessment, she reports urine frequency and urgency. She also report polydipsia. patient has past medical hx of gestational diabetes that resolved after delivery. She denies alcohol, illicit drug use and tobabbaco use. lung sound is clear to auscultation and heart rate is regular. Urinalysis shows elevated Urine WBC. lab work show potassium 4.0, sodium 131, serum glycose 374. 01/10: Blood glucose stable, no new complaints. Continue current management. 01/12: Clinical stable, was seen by my colleague yesterday. Blood glucose stable. (1) Gestational diabetes Current Visit: Yes Status: Acute Plan to address problem: monitor blood sugar with SSI Check HGA1c IV hydration with normal saline Monitor blood sugar and potassium level (2) Urinary tract infection Current Visit: Yes Status: Acute Plan to address problem: IV hydration Empiric abx with macrobid (3) Hypokalemia Replace. (4) Anemia Stable. (5) Hyponatremia Current Visit: Yes Status: Acute Plan to address problem: Most likely 2/2 to dehydration monitor sodium level Started on iv hydration with normal saline History Interval history: Patient seen and examined resting comfortably Hospitalist Physical - Physical exam Narrative exam: VITAL SIGNS: Reviewed. GENERAL: The patient appears normally developed, Vital signs as documented. HEAD: No signs of head trauma. EYES: Pupils are equal. Extraocular motions intact. EARS: Hearing grossly intact. MOUTH: Oropharynx is normal. NECK: No adenopathy, no JVD. CHEST: Chest with clear breath sounds bilaterally. No wheezes, rales, or rhonchi. CARDIAC: Regular rate and rhythm. S1 and S2, without murmurs, gallops, or rubs. VASCULAR: No Edema. Peripheral pulses normal and equal in all extremities. ABDOMEN: Gravidus, soft, non tender and non distended. No rebound or guarding, and no masses palpated. Bowel Sounds normal. MUSCULOSKELETAL: Good range of motion of all major joints. Extremities without clubbing, cyanosis or edema. NEUROLOGIC EXAM: Alert and oriented x 3 No focal sensory or strength deficits. Speech normal. Follows commands. PSYCHIATRIC: Mood normal. SKIN: detail exam as documented in skin assessment - Constitutional Vitals: Temp Pulse Resp BP Pulse Ox 98.2 F 104 H 18 126/82 100 01/13/20 12:00 01/13/20 15:17 01/13/20 12:00 01/13/20 13:17 01/13/20 15:17 General appearance: Present: no acute distress Results - Labs CBC & Chem 7: 01/13/20 05:57 01/12/20 18:49 Labs: Laboratory Last Values WBC 10.0 K/mm3 (4.5-11.0) 01/13/20 05:57 RBC 3.64 M/mm3 (3.65-5.03) L 01/13/20 05:57 Hgb 9.1 gm/dl (10.1-14.3) L 01/13/20 05:57 Hct 27.3 % (30.3-42.9) L 01/13/20 05:57 MCV 75 fl (79-97) L 01/13/20 05:57 MCH 25 pg (28-32) L 01/13/20 05:57 MCHC 34 % (30-34) 01/13/20 05:57 RDW 17.2 % (13.2-15.2) H 01/13/20 05:57 Plt Count 287 K/mm3 (140-440) 01/13/20 05:57 Lymph % (Auto) 17.4 % (13.4-35.0) 01/13/20 05:57 [place] % (Auto) 9.3 % (0.0-7.3) H 01/13/20 05:57 Eos % (Auto) 1.7 % (0.0-4.3) 01/13/20 05:57 Baso % (Auto) 0.2 % (0.0-1.8) 01/13/20 05:57 Lymph # (Auto) 1.7 K/mm3 (1.2-5.4) 01/13/20 05:57 [place] # (Auto) 0.9 K/mm3 (0.0-0.8) H 01/13/20 05:57 Eos # (Auto) 0.2 K/mm3 (0.0-0.4) 01/13/20 05:57 Baso # (Auto) 0.0 K/mm3 (0.0-0.1) 01/13/20 05:57 Seg Neutrophils % 71.4 % (40.0-70.0) H 01/13/20 05:57 Seg Neutrophils # 7.1 K/mm3 (1.8-7.7) 01/13/20 05:57 Sodium 132 mmol/L (137-145) L 01/12/20 18:49 Potassium 3.8 mmol/L (3.6-5.0) 01/12/20 18:49 Chloride 102.3 mmol/L (98-107) 01/12/20 18:49 Carbon Dioxide 17 mmol/L (22-30) L 01/12/20 18:49 Anion Gap 17 mmol/L 01/12/20 18:49 BUN 5 mg/dL (7-17) L 01/12/20 18:49 Creatinine 0.6 mg/dL (0.6-1.2) 01/12/20 18:49 Estimated GFR > 60 ml/min 01/12/20 18:49 BUN/Creatinine Ratio 8 % 01/12/20 18:49 Glucose 243 mg/dL (65-100) H 01/12/20 18:49 POC Glucose 174 mg/dL (70-105) H 01/13/20 14:34 Hemoglobin A1c 10.3 % (4-6) H 01/10/20 08:04 Calcium 8.9 mg/dL (8.4-10.2) 01/12/20 18:49 Total Bilirubin 0.30 mg/dL (0.1-1.2) 01/12/20 18:49 AST 19 units/L (5-40) 01/12/20 18:49 ALT 17 units/L (7-56) 01/12/20 18:49 Alkaline Phosphatase 111 units/L (35-129) 01/12/20 18:49 Total Protein 6.8 g/dL (6.3-8.2) 01/12/20 18:49 Albumin 3.0 g/dL (3.9-5) L 01/12/20 18:49 Albumin/Globulin Ratio 0.8 % 01/12/20 18:49 Urine Color Straw (Yellow) 01/10/20 00:25 Urine Turbidity Clear (Clear) 01/10/20 00:25 Urine pH 6.0 (5.0-7.0) 01/10/20 00:25 Ur Specific [place] 1.033 (1.003-1.030) H 01/10/20 00:25 Urine Protein <15 mg/dl mg/dL (Negative) 01/10/20 00:25 Urine Glucose (UA) >=500 mg/dL (Negative) 01/10/20 00:25 Urine Ketones 80 mg/dL (Negative) 01/10/20 00:25 Urine Blood Neg (Negative) 01/10/20 00:25 Urine Nitrite Neg (Negative) 01/10/20 00:25 Urine Bilirubin Neg (Negative) 01/10/20 00:25 Urine Urobilinogen < 2.0 mg/dL (<2.0) 01/10/20 00:25 Ur Leukocyte Esterase Mod (Negative) 01/10/20 00:25 Urine WBC (Auto) 34.0 /HPF (0.0-6.0) H 01/10/20 00:25 Urine RBC (Auto) 18.0 /HPF (0.0-6.0) 01/10/20 00:25 U Epithel Cells (Auto) 2.0 /HPF (0-13.0) 01/10/20 00:25 Urine Yeast (Budding) Few /HPF 01/10/20 00:25 Urine Total Volume 2500 ml 01/10/20 10:00 Urine Creatinine 88.7 mg/dL (0.1-20.0) H 01/10/20 10:00 Ur Creatinine 24 Hour 2.2 (0.8-2.8) 01/10/20 10:00 Ur Total Protein 24 Hr 425.00 mg/dL (2-200) H 01/10/20 10:00 Urine Total Protein 17 mg/dL (5-11.8) H 01/10/20 10:00 Coronavirus (PCR) Negative (Negative) 01/10/20 11:13 Hua/IV: IV Catheter Type [Left Hand] Peripheral IV Active Medications - Current Medications Current Medications: Generic Name Dose Route Start Last Admin Trade Name Freq PRN Reason Stop Dose Admin Albuterol 2.5 mg 01/10/20 13:53 Proventil IH QIDRT PRN Shortness Of Breath Ferrous Sulfate 325 mg 01/12/20 22:00 01/13/20 11:13 Feosol PO 325 mg BID FATIMAH Administration Sodium Chloride 1,000 mls @ 150 mls/hr 01/10/20 20:06 01/13/20 06:30 Nacl 0.45% 1000 Ml IV 150 mls/hr DIRECT FATIMAH Administration Insulin Human NPH 30 unit 01/13/20 22:00 Humulin N SUB-Q QDDIAB FATIMAH Insulin Human NPH 52 unit 01/14/20 08:00 Humulin N SUB-Q QDDIAB FATIMAH Insulin Human Regular 30 unit 01/13/20 17:00 Humulin R SUB-Q AC FATIMAH Insulin Human Regular 30 unit 01/14/20 07:30 Humulin R SUB-Q QDDIAB FATIMAH Labetalol HCl 100 mg 01/10/20 22:00 01/13/20 11:13 Labetalol PO 100 mg BID FATIMAH Administration Nitrofurantoin Macrocrystals 100 mg 01/10/20 10:00 01/13/20 11:30 Macrobid PO 100 mg Q12HR FATIMAH Administration
--- NOTE | 2020-01-13 16:34 | Progress Note ---
Assessment and Plan - Patient Problems (1) Chronic hypertension affecting Current Visit: Yes Status: Acute Plan to address problem: --TP elevated at 425, but BPs normalized with labetolol. Elevated TP possibly associated with uncontrolled diabetes. No baseline TP. --Continue home labetolol 100mg BID, titrate prn --Continue to monitor (2) Asthma Current Visit: Yes Status: Acute Plan to address problem: --Albuterol prn, titrate prn (3) 29 weeks gestation of Current Visit: Yes Status: Acute Plan to address problem: --Routine AP management, holding management including steriods, antibiotics unless indication for delivery (4) Gestational diabetes Current Visit: Yes Status: Acute Qualifiers: Gestational diabetes mellitus control: insulin-controlled Trimester: third trimester Qualified Code(s): O24.414 - Gestational diabetes mellitus in , insulin controlled Plan to address problem: --Continue subQ insulin management, titration based on APA recs. Appreciated APA recs regarding insulin management. --Consistent carb diet (5) Hypokalemia Current Visit: Yes Status: Acute Plan to address problem: replete lytes prn Subjective - Subjective Date of service: 01/13/20 Principal diagnosis: uncontrolled DM Interval history: Patient doing well. Understands the plan for care for aggressive insulin management of elevated CBGs. Discussed the importance of dietary changes for best management of GDM. Denies labor complaints or PIH symptoms. Objective - Vital Signs Vital Signs: Vital Signs - 12hr 01/13/20 01/13/20 01/13/20 08:00 11:13 11:15 Temperature 98.2 F Pulse Rate 107 H 107 H Respiratory 16 Rate Blood Pressure 133/70 133/70 O2 Sat by Pulse 100 Oximetry 01/13/20 01/13/20 01/13/20 12:00 13:17 14:27 Temperature 98.2 F Pulse Rate 105 H 103 H Respiratory 18 Rate Blood Pressure 126/82 O2 Sat by Pulse 99 Oximetry 01/13/20 01/13/20 01/13/20 14:32 14:37 14:42 Temperature Pulse Rate 102 H 102 H 103 H Respiratory Rate Blood Pressure O2 Sat by Pulse 100 100 100 Oximetry 01/13/20 01/13/20 01/13/20 14:47 14:52 14:57 Temperature Pulse Rate 97 H 100 H 100 H Respiratory Rate Blood Pressure O2 Sat by Pulse 100 100 99 Oximetry 01/13/20 01/13/20 01/13/20 15:02 15:07 15:12 Temperature Pulse Rate 103 H 105 H 102 H Respiratory Rate Blood Pressure O2 Sat by Pulse 100 100 100 Oximetry 01/13/20 01/13/20 01/13/20 15:17 15:22 15:27 Temperature Pulse Rate 104 H 104 H 98 H Respiratory Rate Blood Pressure O2 Sat by Pulse 100 100 100 Oximetry 01/13/20 15:32 Temperature Pulse Rate 99 H Respiratory Rate Blood Pressure O2 Sat by Pulse 100 Oximetry - Exam FHR: category 1 Uterine Contraction Monitor Mode: External Uterine Contraction Pattern: Absent - Labs Labs: Abnormal Labs 01/10/20 01/10/20 01/10/20 00:21 00:25 02:40 WBC RBC Hgb Hct MCV MCH RDW Lymph % (Auto) Bent % (Auto) Bent # (Auto) Seg Neutrophils % Seg Neutrophils # Sodium 131 L Potassium Carbon Dioxide 15 L BUN Creatinine Glucose 374 H POC Glucose 381 H Hemoglobin A1c Albumin 3.3 L Ur Specific [place] 1.033 H Urine WBC (Auto) 34.0 H Urine Creatinine Ur Total Protein 24 Hr Urine Total Protein 01/10/20 01/10/20 01/10/20 03:00 04:11 05:06 WBC RBC Hgb Hct MCV MCH RDW Lymph % (Auto) Bent % (Auto) Bent # (Auto) Seg Neutrophils % Seg Neutrophils # Sodium Potassium Carbon Dioxide BUN Creatinine Glucose POC Glucose 335 H 305 H 328 H Hemoglobin A1c Albumin Ur Specific [place] Urine WBC (Auto) Urine Creatinine Ur Total Protein 24 Hr Urine Total Protein 01/10/20 01/10/20 01/10/20 06:22 08:04 08:04 WBC 14.2 H RBC Hgb 9.5 L Hct MCV 77 L MCH 24 L RDW 16.7 H Lymph % (Auto) 11.1 L Bent % (Auto) 8.8 H Bent # (Auto) 1.2 H Seg Neutrophils % 78.8 H Seg Neutrophils # 11.2 H Sodium Potassium Carbon Dioxide BUN Creatinine Glucose POC Glucose 295 H Hemoglobin A1c 10.3 H Albumin Ur Specific [place] Urine WBC (Auto) Urine Creatinine Ur Total Protein 24 Hr Urine Total Protein 01/10/20 01/10/20 01/10/20 08:23 09:31 10:00 WBC RBC Hgb Hct MCV MCH RDW Lymph % (Auto) Bent % (Auto) Bent # (Auto) Seg Neutrophils % Seg Neutrophils # Sodium Potassium Carbon Dioxide BUN Creatinine Glucose POC Glucose 293 H 287 H Hemoglobin A1c Albumin Ur Specific [place] Urine WBC (Auto) Urine Creatinine 88.7 H Ur Total Protein 24 Hr 425.00 H Urine Total Protein 17 H 01/10/20 01/10/20 01/10/20 10:34 11:35 12:23 WBC RBC Hgb Hct MCV MCH RDW Lymph % (Auto) Bent % (Auto) Bent # (Auto) Seg Neutrophils % Seg Neutrophils # Sodium Potassium Carbon Dioxide BUN Creatinine Glucose POC Glucose 317 H 293 H 335 H Hemoglobin A1c Albumin Ur Specific [place] Urine WBC (Auto) Urine Creatinine Ur Total Protein 24 Hr Urine Total Protein 01/10/20 01/10/20 01/10/20 13:19 14:15 14:49 WBC RBC Hgb Hct MCV MCH RDW Lymph % (Auto) Bent % (Auto) Bent # (Auto) Seg Neutrophils % Seg Neutrophils # Sodium 130 L Potassium Carbon Dioxide 16 L BUN Creatinine 0.5 L Glucose 284 H POC Glucose 265 H 264 H Hemoglobin A1c Albumin 3.1 L Ur Specific [place] Urine WBC (Auto) Urine Creatinine Ur Total Protein 24 Hr Urine Total Protein 01/10/20 01/10/20 01/10/20 16:39 18:31 19:14 WBC RBC Hgb Hct MCV MCH RDW Lymph % (Auto) Bent % (Auto) [place] # (Auto) Seg Neutrophils % Seg Neutrophils # Sodium 128 L Potassium Carbon Dioxide 17 L BUN Creatinine 0.5 L Glucose 321 H POC Glucose 258 H 299 H Hemoglobin A1c Albumin 2.8 L Ur Specific [place] Urine WBC (Auto) Urine Creatinine Ur Total Protein 24 Hr Urine Total Protein 01/10/20 01/10/20 01/10/20 19:46 21:44 23:42 WBC RBC Hgb Hct MCV MCH RDW Lymph % (Auto) Bent % (Auto) [place] # (Auto) Seg Neutrophils % Seg Neutrophils # Sodium Potassium Carbon Dioxide BUN Creatinine Glucose POC Glucose 257 H 300 H 253 H Hemoglobin A1c Albumin Ur Specific [place] Urine WBC (Auto) Urine Creatinine Ur Total Protein 24 Hr Urine Total Protein 01/11/20 01/11/20 01/11/20 00:50 01:41 03:49 WBC RBC Hgb Hct MCV MCH RDW Lymph % (Auto) Bent % (Auto) [place] # (Auto) Seg Neutrophils % Seg Neutrophils # Sodium 131 L Potassium 3.4 L Carbon Dioxide 18 L BUN Creatinine 0.5 L Glucose 230 H POC Glucose 191 H 177 H Hemoglobin A1c Albumin 3.1 L Ur Specific [place] Urine WBC (Auto) Urine Creatinine Ur Total Protein 24 Hr Urine Total Protein 01/11/20 01/11/20 01/11/20 05:50 07:43 09:25 WBC RBC Hgb Hct MCV MCH RDW Lymph % (Auto) Bent % (Auto) [place] # (Auto) Seg Neutrophils % Seg Neutrophils # Sodium Potassium Carbon Dioxide BUN Creatinine Glucose POC Glucose 169 H 178 H 219 H Hemoglobin A1c Albumin Ur Specific [place] Urine WBC (Auto) Urine Creatinine Ur Total Protein 24 Hr Urine Total Protein 01/11/20 01/11/20 01/11/20 11:24 11:57 15:11 WBC RBC Hgb Hct MCV MCH RDW Lymph % (Auto) Bent % (Auto) Bent # (Auto) Seg Neutrophils % Seg Neutrophils # Sodium 134 L Potassium 3.4 L Carbon Dioxide 20 L BUN 6 L Creatinine 0.5 L Glucose 198 H POC Glucose 175 H 171 H Hemoglobin A1c Albumin 3.1 L Ur Specific [place] Urine WBC (Auto) Urine Creatinine Ur Total Protein 24 Hr Urine Total Protein 01/11/20 01/11/20 01/11/20 17:12 18:33 19:20 WBC RBC Hgb Hct MCV MCH RDW Lymph % (Auto) Bent % (Auto) Bent # (Auto) Seg Neutrophils % Seg Neutrophils # Sodium 131 L Potassium Carbon Dioxide 18 L BUN Creatinine Glucose 188 H POC Glucose 184 H 155 H Hemoglobin A1c Albumin 3.0 L Ur Specific [place] Urine WBC (Auto) Urine Creatinine Ur Total Protein 24 Hr Urine Total Protein 01/11/20 01/11/20 01/12/20 21:07 23:23 00:23 WBC RBC Hgb Hct MCV MCH RDW Lymph % (Auto) Bent % (Auto) Bent # (Auto) Seg Neutrophils % Seg Neutrophils # Sodium 132 L Potassium Carbon Dioxide 17 L BUN Creatinine Glucose 164 H POC Glucose 154 H 146 H Hemoglobin A1c Albumin 3.1 L Ur Specific [place] Urine WBC (Auto) Urine Creatinine Ur Total Protein 24 Hr Urine Total Protein 01/12/20 01/12/20 01/12/20 05:09 06:28 11:30 WBC RBC Hgb Hct MCV MCH RDW Lymph % (Auto) Bent % (Auto) Bent # (Auto) Seg Neutrophils % Seg Neutrophils # Sodium 135 L Potassium Carbon Dioxide 19 L BUN Creatinine 0.5 L Glucose 187 H POC Glucose 160 H 226 H Hemoglobin A1c Albumin 3.0 L Ur Specific [place] Urine WBC (Auto) Urine Creatinine Ur Total Protein 24 Hr Urine Total Protein 01/12/20 01/12/20 01/12/20 13:34 15:51 18:49 WBC RBC Hgb Hct MCV MCH RDW Lymph % (Auto) Bent % (Auto) Bent # (Auto) Seg Neutrophils % Seg Neutrophils # Sodium 133 L 132 L Potassium Carbon Dioxide 17 L 17 L BUN 5 L 5 L Creatinine 0.5 L Glucose 228 H 243 H POC Glucose 195 H Hemoglobin A1c Albumin 3.0 L 3.0 L Ur Specific [place] Urine WBC (Auto) Urine Creatinine Ur Total Protein 24 Hr Urine Total Protein 01/12/20 01/13/20 01/13/20 20:36 05:57 06:17 WBC RBC 3.64 L Hgb 9.1 L Hct 27.3 L MCV 75 L MCH 25 L RDW 17.2 H Lymph % (Auto) Bent % (Auto) 9.3 H Bent # (Auto) 0.9 H Seg Neutrophils % 71.4 H Seg Neutrophils # Sodium Potassium Carbon Dioxide BUN Creatinine Glucose POC Glucose 205 H 137 H Hemoglobin A1c Albumin Ur Specific [place] Urine WBC (Auto) Urine Creatinine Ur Total Protein 24 Hr Urine Total Protein 01/13/20 01/13/20 11:16 14:34 WBC RBC Hgb Hct MCV MCH RDW Lymph % (Auto) Bent % (Auto) Bent # (Auto) Seg Neutrophils % Seg Neutrophils # Sodium Potassium Carbon Dioxide BUN Creatinine Glucose POC Glucose 168 H 174 H Hemoglobin A1c Albumin Ur Specific [place] Urine WBC (Auto) Urine Creatinine Ur Total Protein 24 Hr Urine Total Protein Laboratory Results - last 24 hr 01/12/20 01/12/20 01/12/20 13:34 18:49 20:36 WBC RBC Hgb Hct MCV MCH MCHC RDW Plt Count Lymph % (Auto) [place] % (Auto) Eos % (Auto) Baso % (Auto) Lymph # (Auto) [place] # (Auto) Eos # (Auto) Baso # (Auto) Seg Neutrophils % Seg Neutrophils # Sodium 133 L 132 L Potassium 4.0 3.8 Chloride 103.6 102.3 Carbon Dioxide 17 L 17 L Anion Gap 16 17 BUN 5 L 5 L Creatinine 0.5 L 0.6 Estimated GFR > 60 > 60 BUN/Creatinine Ratio 10 8 Glucose 228 H 243 H POC Glucose 205 H Calcium 9.0 8.9 Total Bilirubin 0.30 0.30 AST 20 19 ALT 20 17 Alkaline Phosphatase 107 111 Total Protein 6.9 6.8 Albumin 3.0 L 3.0 L Albumin/Globulin Ratio 0.8 0.8 01/13/20 01/13/20 01/13/20 05:57 06:17 11:16 WBC 10.0 RBC 3.64 L Hgb 9.1 L Hct 27.3 L MCV 75 L MCH 25 L MCHC 34 RDW 17.2 H Plt Count 287 Lymph % (Auto) 17.4 Bent % (Auto) 9.3 H Eos % (Auto) 1.7 Baso % (Auto) 0.2 Lymph # (Auto) 1.7 Bent # (Auto) 0.9 H Eos # (Auto) 0.2 Baso # (Auto) 0.0 Seg Neutrophils % 71.4 H Seg Neutrophils # 7.1 Sodium Potassium Chloride Carbon Dioxide Anion Gap BUN Creatinine Estimated GFR BUN/Creatinine Ratio Glucose POC Glucose 137 H 168 H Calcium Total Bilirubin AST ALT Alkaline Phosphatase Total Protein Albumin Albumin/Globulin Ratio 01/13/20 14:34 WBC RBC Hgb Hct MCV MCH MCHC RDW Plt Count Lymph % (Auto) [place] % (Auto) Eos % (Auto) Baso % (Auto) Lymph # (Auto) [place] # (Auto) Eos # (Auto) Baso # (Auto) Seg Neutrophils % Seg Neutrophils # Sodium Potassium Chloride Carbon Dioxide Anion Gap BUN Creatinine Estimated GFR BUN/Creatinine Ratio Glucose POC Glucose 174 H Calcium Total Bilirubin AST ALT Alkaline Phosphatase Total Protein Albumin Albumin/Globulin Ratio
[2020-01-13] MEDS: INSULIN REGULAR, HUMAN 100 UNIT/ML 3ML VIAL SUB-Q SCH (17:23)
[2020-01-14] MEDS ORDERED: INSULIN REGULAR, HUMAN 100 UNIT/ML 3ML VIAL SUB-Q SCH (07:30)
[2020-01-14] MEDS: INSULIN NPH, HUMAN 100 UNIT/1 ML SUB-Q SCH (08:59)
[2020-01-14] MEDS: INSULIN REGULAR, HUMAN 100 UNIT/ML 3ML VIAL SUB-Q SCH ×2 (09:08→17:28)
[2020-01-14] MEDS: FERROUS SULFATE 325 MG TAB PO SCH (09:14)
[2020-01-14] MEDS: NITROFURANTOIN MONOHYD/M-CRYST 100 MG CAP PO SCH (09:14)
--- NOTE | 2020-01-14 16:00 | Progress Note ---
Assessment and Plan - Patient Problems (1) Chronic hypertension affecting Current Visit: Yes Status: Acute Plan to address problem: BP control is good. Cont Labetalol. (2) Gestational diabetes Current Visit: Yes Status: Acute Qualifiers: Gestational diabetes mellitus control: insulin-controlled Trimester: third trimester Qualified Code(s): O24.414 - Gestational diabetes mellitus in , insulin controlled Plan to address problem: BG control is improving but levels are still elevated. Case d/w Dr. Monroe. He will adjust inuslin accordingly and wants to cont watching her in the hospital until BG control improves some more. Subjective - Subjective Date of service: 01/14/20 (30w 2 d) Principal diagnosis: uncontrolled DM Patient reports: movement normal, no loss of fluid, no contractions (PT doing well. No more dizziness like she had last night. Fasting BG today 120. 176 and 182 were postprandial levels today.) Objective - Vital Signs Vital Signs: Vital Signs - 12hr 01/14/20 01/14/20 01/14/20 04:00 04:05 04:10 Temperature Pulse Rate 97 H 101 H 101 H Respiratory Rate Blood Pressure Blood Pressure [Right] O2 Sat by Pulse 99 99 99 Oximetry 01/14/20 01/14/20 01/14/20 04:15 04:20 04:25 Temperature Pulse Rate 101 H 100 H 100 H Respiratory Rate Blood Pressure Blood Pressure [Right] O2 Sat by Pulse 98 99 99 Oximetry 01/14/20 01/14/20 01/14/20 04:30 04:35 04:40 Temperature Pulse Rate 100 H 107 H 95 H Respiratory Rate Blood Pressure Blood Pressure [Right] O2 Sat by Pulse 98 100 99 Oximetry 01/14/20 01/14/20 01/14/20 04:41 04:45 04:50 Temperature Pulse Rate 93 H 93 H 96 H Respiratory Rate Blood Pressure Blood Pressure [Right] O2 Sat by Pulse 91 99 99 Oximetry 01/14/20 01/14/20 01/14/20 04:51 04:55 05:02 Temperature Pulse Rate 106 H 95 H 113 H Respiratory Rate Blood Pressure Blood Pressure [Right] O2 Sat by Pulse 89 99 98 Oximetry 01/14/20 01/14/20 01/14/20 05:04 05:07 05:12 Temperature Pulse Rate 103 H 98 H 102 H Respiratory Rate Blood Pressure 163/92 Blood Pressure [Right] O2 Sat by Pulse 100 100 Oximetry 01/14/20 01/14/20 01/14/20 05:17 05:22 05:23 Temperature Pulse Rate 98 H 97 H 95 H Respiratory Rate Blood Pressure 144/82 Blood Pressure [Right] O2 Sat by Pulse 100 99 Oximetry 01/14/20 01/14/20 01/14/20 05:27 05:32 05:37 Temperature Pulse Rate 95 H 99 H 96 H Respiratory Rate Blood Pressure Blood Pressure [Right] O2 Sat by Pulse 100 100 99 Oximetry 01/14/20 01/14/20 01/14/20 05:42 05:47 05:52 Temperature Pulse Rate 99 H 98 H 101 H Respiratory Rate Blood Pressure Blood Pressure [Right] O2 Sat by Pulse 99 94 100 Oximetry 01/14/20 01/14/20 01/14/20 05:57 06:02 06:07 Temperature Pulse Rate 104 H 98 H 102 H Respiratory Rate Blood Pressure Blood Pressure [Right] O2 Sat by Pulse 100 100 100 Oximetry 01/14/20 01/14/20 01/14/20 06:12 06:17 06:22 Temperature Pulse Rate 98 H 99 H 106 H Respiratory Rate Blood Pressure Blood Pressure [Right] O2 Sat by Pulse 99 100 100 Oximetry 01/14/20 01/14/20 01/14/20 06:27 06:32 06:37 Temperature Pulse Rate 98 H 96 H 98 H Respiratory Rate Blood Pressure Blood Pressure [Right] O2 Sat by Pulse 100 99 100 Oximetry 01/14/20 01/14/20 01/14/20 06:42 06:47 06:52 Temperature Pulse Rate 98 H 95 H 98 H Respiratory Rate Blood Pressure Blood Pressure [Right] O2 Sat by Pulse 99 100 100 Oximetry 01/14/20 01/14/20 01/14/20 06:57 07:02 07:07 Temperature Pulse Rate 98 H 99 H 92 H Respiratory Rate Blood Pressure Blood Pressure [Right] O2 Sat by Pulse 100 100 100 Oximetry 01/14/20 01/14/20 01/14/20 07:12 07:17 07:22 Temperature Pulse Rate 97 H 94 H 95 H Respiratory Rate Blood Pressure Blood Pressure [Right] O2 Sat by Pulse 99 99 100 Oximetry 01/14/20 01/14/20 01/14/20 07:27 07:32 07:37 Temperature Pulse Rate 93 H 93 H 98 H Respiratory Rate Blood Pressure Blood Pressure [Right] O2 Sat by Pulse 100 100 100 Oximetry 01/14/20 01/14/20 01/14/20 07:42 07:47 07:52 Temperature Pulse Rate 96 H 91 H 96 H Respiratory Rate Blood Pressure Blood Pressure [Right] O2 Sat by Pulse 100 100 99 Oximetry 01/14/20 01/14/20 01/14/20 07:54 07:57 08:02 Temperature Pulse Rate 97 H 104 H 100 H Respiratory Rate Blood Pressure 122/71 Blood Pressure [Right] O2 Sat by Pulse 99 100 Oximetry 01/14/20 01/14/20 01/14/20 08:07 08:12 08:17 Temperature 98.3 F Pulse Rate 96 H 93 H 94 H Respiratory 19 Rate Blood Pressure Blood Pressure 122/71 [Right] O2 Sat by Pulse 100 99 99 Oximetry 01/14/20 01/14/20 01/14/20 08:22 08:27 08:32 Temperature Pulse Rate 104 H 99 H 102 H Respiratory Rate Blood Pressure Blood Pressure [Right] O2 Sat by Pulse 100 100 100 Oximetry 01/14/20 01/14/20 01/14/20 08:37 08:42 08:47 Temperature Pulse Rate 104 H 108 H 105 H Respiratory Rate Blood Pressure Blood Pressure [Right] O2 Sat by Pulse 100 99 100 Oximetry 01/14/20 01/14/20 01/14/20 08:52 08:57 09:02 Temperature Pulse Rate 113 H 113 H 106 H Respiratory Rate Blood Pressure Blood Pressure [Right] O2 Sat by Pulse 100 100 99 Oximetry 01/14/20 01/14/20 01/14/20 09:07 09:12 09:13 Temperature Pulse Rate 113 H 107 H 90 Respiratory Rate Blood Pressure 122/77 Blood Pressure [Right] O2 Sat by Pulse 100 99 Oximetry 01/14/20 01/14/20 01/14/20 09:17 09:22 09:27 Temperature Pulse Rate 127 H 118 H 117 H Respiratory Rate Blood Pressure Blood Pressure [Right] O2 Sat by Pulse 98 100 100 Oximetry 01/14/20 01/14/20 01/14/20 09:32 09:37 09:42 Temperature Pulse Rate 114 H 118 H 113 H Respiratory Rate Blood Pressure Blood Pressure [Right] O2 Sat by Pulse 99 100 100 Oximetry 01/14/20 01/14/20 01/14/20 09:47 09:52 09:57 Temperature Pulse Rate 111 H 116 H 112 H Respiratory Rate Blood Pressure Blood Pressure [Right] O2 Sat by Pulse 100 99 100 Oximetry 01/14/20 01/14/20 01/14/20 10:02 10:07 10:12 Temperature Pulse Rate 108 H 108 H 109 H Respiratory Rate Blood Pressure Blood Pressure [Right] O2 Sat by Pulse 99 99 98 Oximetry 01/14/20 01/14/20 01/14/20 10:17 10:22 10:27 Temperature Pulse Rate 109 H 106 H 109 H Respiratory Rate Blood Pressure Blood Pressure [Right] O2 Sat by Pulse 100 100 100 Oximetry 01/14/20 01/14/20 01/14/20 11:06 11:53 13:43 Temperature Pulse Rate 97 H 107 H Respiratory Rate Blood Pressure 115/57 Blood Pressure [Right] O2 Sat by Pulse 78 L 99 Oximetry 01/14/20 01/14/20 01/14/20 13:48 13:53 13:58 Temperature Pulse Rate 98 H 98 H 104 H Respiratory Rate Blood Pressure Blood Pressure [Right] O2 Sat by Pulse 98 97 97 Oximetry 01/14/20 01/14/20 01/14/20 13:59 14:03 14:08 Temperature Pulse Rate 105 H 100 H 95 H Respiratory Rate Blood Pressure Blood Pressure [Right] O2 Sat by Pulse 90 92 99 Oximetry 01/14/20 01/14/20 01/14/20 14:13 14:18 14:23 Temperature Pulse Rate 96 H 96 H 98 H Respiratory Rate Blood Pressure Blood Pressure [Right] O2 Sat by Pulse 98 97 97 Oximetry 01/14/20 01/14/20 01/14/20 14:28 14:33 14:38 Temperature Pulse Rate 101 H 98 H 99 H Respiratory Rate Blood Pressure Blood Pressure [Right] O2 Sat by Pulse 96 98 100 Oximetry 01/14/20 01/14/20 01/14/20 14:43 14:48 14:53 Temperature Pulse Rate 102 H 111 H 104 H Respiratory Rate Blood Pressure Blood Pressure [Right] O2 Sat by Pulse 99 99 100 Oximetry 01/14/20 01/14/20 01/14/20 14:58 15:03 15:08 Temperature Pulse Rate 101 H 102 H 104 H Respiratory Rate Blood Pressure Blood Pressure [Right] O2 Sat by Pulse 99 99 99 Oximetry 01/14/20 01/14/20 01/14/20 15:13 15:18 15:23 Temperature Pulse Rate 100 H 104 H 101 H Respiratory Rate Blood Pressure Blood Pressure [Right] O2 Sat by Pulse 99 99 98 Oximetry 01/14/20 01/14/20 01/14/20 15:28 15:33 15:38 Temperature Pulse Rate 104 H 111 H 101 H Respiratory Rate Blood Pressure Blood Pressure [Right] O2 Sat by Pulse 99 99 99 Oximetry 01/14/20 01/14/20 01/14/20 15:43 15:48 15:53 Temperature Pulse Rate 105 H 101 H 103 H Respiratory Rate Blood Pressure Blood Pressure [Right] O2 Sat by Pulse 99 99 99 Oximetry - Exam FHR: category 1 FHR comments: 130s, reactive, mod LTV Uterine Contraction Pattern: Absent - Labs Labs: Abnormal Labs 01/10/20 01/10/20 01/10/20 00:21 00:25 02:40 WBC RBC Hgb Hct MCV MCH RDW Lymph % (Auto) Jones % (Auto) Jones # (Auto) Seg Neutrophils % Seg Neutrophils # Sodium 131 L Potassium Carbon Dioxide 15 L BUN Creatinine Glucose 374 H POC Glucose 381 H Hemoglobin A1c Albumin 3.3 L Ur Specific [place] 1.033 H Urine WBC (Auto) 34.0 H Urine Creatinine Ur Total Protein 24 Hr Urine Total Protein 01/10/20 01/10/20 01/10/20 03:00 04:11 05:06 WBC RBC Hgb Hct MCV MCH RDW Lymph % (Auto) Jones % (Auto) Jones # (Auto) Seg Neutrophils % Seg Neutrophils # Sodium Potassium Carbon Dioxide BUN Creatinine Glucose POC Glucose 335 H 305 H 328 H Hemoglobin A1c Albumin Ur Specific [place] Urine WBC (Auto) Urine Creatinine Ur Total Protein 24 Hr Urine Total Protein 01/10/20 01/10/20 01/10/20 06:22 08:04 08:04 WBC 14.2 H RBC Hgb 9.5 L Hct MCV 77 L MCH 24 L RDW 16.7 H Lymph % (Auto) 11.1 L Jones % (Auto) 8.8 H Jones # (Auto) 1.2 H Seg Neutrophils % 78.8 H Seg Neutrophils # 11.2 H Sodium Potassium Carbon Dioxide BUN Creatinine Glucose POC Glucose 295 H Hemoglobin A1c 10.3 H Albumin Ur Specific [place] Urine WBC (Auto) Urine Creatinine Ur Total Protein 24 Hr Urine Total Protein 12/05/20 12/05/20 12/05/20 08:23 09:31 10:00 WBC RBC Hgb Hct MCV MCH RDW Lymph % (Auto) Jones % (Auto) Jones # (Auto) Seg Neutrophils % Seg Neutrophils # Sodium Potassium Carbon Dioxide BUN Creatinine Glucose POC Glucose 293 H 287 H Hemoglobin A1c Albumin Ur Specific [place] Urine WBC (Auto) Urine Creatinine 88.7 H Ur Total Protein 24 Hr 425.00 H Urine Total Protein 17 H 01/10/20 01/10/20 01/10/20 10:34 11:35 12:23 WBC RBC Hgb Hct MCV MCH RDW Lymph % (Auto) Jones % (Auto) Jones # (Auto) Seg Neutrophils % Seg Neutrophils # Sodium Potassium Carbon Dioxide BUN Creatinine Glucose POC Glucose 317 H 293 H 335 H Hemoglobin A1c Albumin Ur Specific [place] Urine WBC (Auto) Urine Creatinine Ur Total Protein 24 Hr Urine Total Protein 01/10/20 01/10/20 01/10/20 13:19 14:15 14:49 WBC RBC Hgb Hct MCV MCH RDW Lymph % (Auto) Jones % (Auto) Jones # (Auto) Seg Neutrophils % Seg Neutrophils # Sodium 130 L Potassium Carbon Dioxide 16 L BUN Creatinine 0.5 L Glucose 284 H POC Glucose 265 H 264 H Hemoglobin A1c Albumin 3.1 L Ur Specific [place] Urine WBC (Auto) Urine Creatinine Ur Total Protein 24 Hr Urine Total Protein 01/10/20 01/10/20 01/10/20 16:39 18:31 19:14 WBC RBC Hgb Hct MCV MCH RDW Lymph % (Auto) Jones % (Auto) Jones # (Auto) Seg Neutrophils % Seg Neutrophils # Sodium 128 L Potassium Carbon Dioxide 17 L BUN Creatinine 0.5 L Glucose 321 H POC Glucose 258 H 299 H Hemoglobin A1c Albumin 2.8 L Ur Specific [place] Urine WBC (Auto) Urine Creatinine Ur Total Protein 24 Hr Urine Total Protein 01/10/20 01/10/20 01/10/20 19:46 21:44 23:42 WBC RBC Hgb Hct MCV MCH RDW Lymph % (Auto) Jones % (Auto) Jones # (Auto) Seg Neutrophils % Seg Neutrophils # Sodium Potassium Carbon Dioxide BUN Creatinine Glucose POC Glucose 257 H 300 H 253 H Hemoglobin A1c Albumin Ur Specific [place] Urine WBC (Auto) Urine Creatinine Ur Total Protein 24 Hr Urine Total Protein 01/11/20 01/11/20 01/11/20 00:50 01:41 03:49 WBC RBC Hgb Hct MCV MCH RDW Lymph % (Auto) Jones % (Auto) Jones # (Auto) Seg Neutrophils % Seg Neutrophils # Sodium 131 L Potassium 3.4 L Carbon Dioxide 18 L BUN Creatinine 0.5 L Glucose 230 H POC Glucose 191 H 177 H Hemoglobin A1c Albumin 3.1 L Ur Specific [place] Urine WBC (Auto) Urine Creatinine Ur Total Protein 24 Hr Urine Total Protein 01/11/20 01/11/20 01/11/20 05:50 07:43 09:25 WBC RBC Hgb Hct MCV MCH RDW Lymph % (Auto) Jones % (Auto) Jones # (Auto) Seg Neutrophils % Seg Neutrophils # Sodium Potassium Carbon Dioxide BUN Creatinine Glucose POC Glucose 169 H 178 H 219 H Hemoglobin A1c Albumin Ur Specific [place] Urine WBC (Auto) Urine Creatinine Ur Total Protein 24 Hr Urine Total Protein 01/11/20 01/11/20 01/11/20 11:24 11:57 15:11 WBC RBC Hgb Hct MCV MCH RDW Lymph % (Auto) Jones % (Auto) Jones # (Auto) Seg Neutrophils % Seg Neutrophils # Sodium 134 L Potassium 3.4 L Carbon Dioxide 20 L BUN 6 L Creatinine 0.5 L Glucose 198 H POC Glucose 175 H 171 H Hemoglobin A1c Albumin 3.1 L Ur Specific [place] Urine WBC (Auto) Urine Creatinine Ur Total Protein 24 Hr Urine Total Protein 01/11/20 01/11/20 01/11/20 17:12 18:33 19:20 WBC RBC Hgb Hct MCV MCH RDW Lymph % (Auto) Jones % (Auto) Jones # (Auto) Seg Neutrophils % Seg Neutrophils # Sodium 131 L Potassium Carbon Dioxide 18 L BUN Creatinine Glucose 188 H POC Glucose 184 H 155 H Hemoglobin A1c Albumin 3.0 L Ur Specific [place] Urine WBC (Auto) Urine Creatinine Ur Total Protein 24 Hr Urine Total Protein 01/11/20 01/11/20 01/12/20 21:07 23:23 00:23 WBC RBC Hgb Hct MCV MCH RDW Lymph % (Auto) Jones % (Auto) Jones # (Auto) Seg Neutrophils % Seg Neutrophils # Sodium 132 L Potassium Carbon Dioxide 17 L BUN Creatinine Glucose 164 H POC Glucose 154 H 146 H Hemoglobin A1c Albumin 3.1 L Ur Specific [place] Urine WBC (Auto) Urine Creatinine Ur Total Protein 24 Hr Urine Total Protein 01/12/20 01/12/20 01/12/20 05:09 06:28 11:30 WBC RBC Hgb Hct MCV MCH RDW Lymph % (Auto) Jones % (Auto) Jones # (Auto) Seg Neutrophils % Seg Neutrophils # Sodium 135 L Potassium Carbon Dioxide 19 L BUN Creatinine 0.5 L Glucose 187 H POC Glucose 160 H 226 H Hemoglobin A1c Albumin 3.0 L Ur Specific [place] Urine WBC (Auto) Urine Creatinine Ur Total Protein 24 Hr Urine Total Protein 01/12/20 01/12/20 01/12/20 13:34 15:51 18:49 WBC RBC Hgb Hct MCV MCH RDW Lymph % (Auto) Jones % (Auto) Jones # (Auto) Seg Neutrophils % Seg Neutrophils # Sodium 133 L 132 L Potassium Carbon Dioxide 17 L 17 L BUN 5 L 5 L Creatinine 0.5 L Glucose 228 H 243 H POC Glucose 195 H Hemoglobin A1c Albumin 3.0 L 3.0 L Ur Specific [place] Urine WBC (Auto) Urine Creatinine Ur Total Protein 24 Hr Urine Total Protein 01/12/20 01/13/20 01/13/20 20:36 05:57 06:17 WBC RBC 3.64 L Hgb 9.1 L Hct 27.3 L MCV 75 L MCH 25 L RDW 17.2 H Lymph % (Auto) Jones % (Auto) 9.3 H Jones # (Auto) 0.9 H Seg Neutrophils % 71.4 H Seg Neutrophils # Sodium Potassium Carbon Dioxide BUN Creatinine Glucose POC Glucose 205 H 137 H Hemoglobin A1c Albumin Ur Specific [place] Urine WBC (Auto) Urine Creatinine Ur Total Protein 24 Hr Urine Total Protein 01/13/20 01/13/20 01/13/20 11:16 14:34 17:16 WBC RBC Hgb Hct MCV MCH RDW Lymph % (Auto) Jones % (Auto) Jones # (Auto) Seg Neutrophils % Seg Neutrophils # Sodium Potassium Carbon Dioxide BUN Creatinine Glucose POC Glucose 168 H 174 H 143 H Hemoglobin A1c Albumin Ur Specific [place] Urine WBC (Auto) Urine Creatinine Ur Total Protein 24 Hr Urine Total Protein 01/13/20 01/13/20 01/14/20 20:11 22:47 03:17 WBC RBC Hgb Hct MCV MCH RDW Lymph % (Auto) Jones % (Auto) Jones # (Auto) Seg Neutrophils % Seg Neutrophils # Sodium Potassium Carbon Dioxide BUN Creatinine Glucose POC Glucose 161 H 126 H 145 H Hemoglobin A1c Albumin Ur Specific [place] Urine WBC (Auto) Urine Creatinine Ur Total Protein 24 Hr Urine Total Protein 01/14/20 01/14/20 01/14/20 05:57 11:00 13:42 WBC RBC Hgb Hct MCV MCH RDW Lymph % (Auto) Jones % (Auto) Jones # (Auto) Seg Neutrophils % Seg Neutrophils # Sodium Potassium Carbon Dioxide BUN Creatinine Glucose POC Glucose 120 H 176 H 182 H Hemoglobin A1c Albumin Ur Specific [place] Urine WBC (Auto) Urine Creatinine Ur Total Protein 24 Hr Urine Total Protein Laboratory Results - last 24 hr 01/13/20 01/13/20 01/13/20 17:16 20:11 22:47 POC Glucose 143 H 161 H 126 H 01/14/20 01/14/20 01/14/20 03:17 05:57 11:00 POC Glucose 145 H 120 H 176 H 01/14/20 13:42 POC Glucose 182 H
--- NOTE | 2020-01-14 16:14 | Progress Note ---
Assessment and Plan Assessment and plan: Patient is a 34 year old female patient who presents with elevated blood sugar. hospitalist is consulted to see patient due to elevated blood sugar. On assessment, she reports urine frequency and urgency. She also report polydipsia. patient has past medical hx of gestational diabetes that resolved after delivery. She denies alcohol, illicit drug use and tobabbaco use. lung sound is clear to auscultation and heart rate is regular. Urinalysis shows elevated Urine WBC. lab work show potassium 4.0, sodium 131, serum glycose 374. 01/10: Blood glucose stable, no new complaints. Continue current management. 01/12: Clinical stable, was seen by my colleague yesterday. Blood glucose stable. 01/13: Patient remains clinically stable, Blood glucose stable. Will follow peripherally. Please reconsult if needed. (1) Gestational diabetes Current Visit: Yes Status: Acute Plan to address problem: monitor blood sugar with SSI Check HGA1c IV hydration with normal saline Monitor blood sugar and potassium level (2) Urinary tract infection Current Visit: Yes Status: Acute Plan to address problem: IV hydration Empiric abx with macrobid (3) Hypokalemia Replace. (4) Anemia Stable. (5) Hyponatremia Current Visit: Yes Status: Acute Plan to address problem: Most likely 2/2 to dehydration monitor sodium level Started on iv hydration with normal saline History Interval history: Patient seen and examined resting comfortably Hospitalist Physical - Physical exam Narrative exam: VITAL SIGNS: Reviewed. GENERAL: The patient appears normally developed, Vital signs as documented. HEAD: No signs of head trauma. EYES: Pupils are equal. Extraocular motions intact. EARS: Hearing grossly intact. MOUTH: Oropharynx is normal. NECK: No adenopathy, no JVD. CHEST: Chest with clear breath sounds bilaterally. No wheezes, rales, or rhonchi. CARDIAC: Regular rate and rhythm. S1 and S2, without murmurs, gallops, or rubs. VASCULAR: No Edema. Peripheral pulses normal and equal in all extremities. ABDOMEN: Gravidus, soft, non tender and non distended. No rebound or guarding, and no masses palpated. Bowel Sounds normal. MUSCULOSKELETAL: Good range of motion of all major joints. Extremities without clubbing, cyanosis or edema. NEUROLOGIC EXAM: Alert and oriented x 3 No focal sensory or strength deficits. Speech normal. Follows commands. PSYCHIATRIC: Mood normal. SKIN: detail exam as documented in skin assessment - Constitutional Vitals: Temp Pulse Resp BP Pulse Ox 98.3 F 102 H 19 115/57 100 01/14/20 08:07 01/14/20 16:08 01/14/20 08:07 01/14/20 11:53 01/14/20 16:08 General appearance: Present: no acute distress Results - Labs CBC & Chem 7: 01/13/20 05:57 01/12/20 18:49 Labs: Laboratory Last Values WBC 10.0 K/mm3 (4.5-11.0) 01/13/20 05:57 RBC 3.64 M/mm3 (3.65-5.03) L 01/13/20 05:57 Hgb 9.1 gm/dl (10.1-14.3) L 01/13/20 05:57 Hct 27.3 % (30.3-42.9) L 01/13/20 05:57 MCV 75 fl (79-97) L 01/13/20 05:57 MCH 25 pg (28-32) L 01/13/20 05:57 MCHC 34 % (30-34) 01/13/20 05:57 RDW 17.2 % (13.2-15.2) H 01/13/20 05:57 Plt Count 287 K/mm3 (140-440) 01/13/20 05:57 Lymph % (Auto) 17.4 % (13.4-35.0) 01/13/20 05:57 [place] % (Auto) 9.3 % (0.0-7.3) H 01/13/20 05:57 Eos % (Auto) 1.7 % (0.0-4.3) 01/13/20 05:57 Baso % (Auto) 0.2 % (0.0-1.8) 01/13/20 05:57 Lymph # (Auto) 1.7 K/mm3 (1.2-5.4) 01/13/20 05:57 [place] # (Auto) 0.9 K/mm3 (0.0-0.8) H 01/13/20 05:57 Eos # (Auto) 0.2 K/mm3 (0.0-0.4) 01/13/20 05:57 Baso # (Auto) 0.0 K/mm3 (0.0-0.1) 01/13/20 05:57 Seg Neutrophils % 71.4 % (40.0-70.0) H 01/13/20 05:57 Seg Neutrophils # 7.1 K/mm3 (1.8-7.7) 01/13/20 05:57 Sodium 132 mmol/L (137-145) L 01/12/20 18:49 Potassium 3.8 mmol/L (3.6-5.0) 01/12/20 18:49 Chloride 102.3 mmol/L (98-107) 01/12/20 18:49 Carbon Dioxide 17 mmol/L (22-30) L 01/12/20 18:49 Anion Gap 17 mmol/L 01/12/20 18:49 BUN 5 mg/dL (7-17) L 01/12/20 18:49 Creatinine 0.6 mg/dL (0.6-1.2) 01/12/20 18:49 Estimated GFR > 60 ml/min 01/12/20 18:49 BUN/Creatinine Ratio 8 % 01/12/20 18:49 Glucose 243 mg/dL (65-100) H 01/12/20 18:49 POC Glucose 182 mg/dL (70-105) H 01/14/20 13:42 Hemoglobin A1c 10.3 % (4-6) H 01/10/20 08:04 Calcium 8.9 mg/dL (8.4-10.2) 01/12/20 18:49 Total Bilirubin 0.30 mg/dL (0.1-1.2) 01/12/20 18:49 AST 19 units/L (5-40) 01/12/20 18:49 ALT 17 units/L (7-56) 01/12/20 18:49 Alkaline Phosphatase 111 units/L (35-129) 01/12/20 18:49 Total Protein 6.8 g/dL (6.3-8.2) 01/12/20 18:49 Albumin 3.0 g/dL (3.9-5) L 01/12/20 18:49 Albumin/Globulin Ratio 0.8 % 01/12/20 18:49 Urine Color Straw (Yellow) 01/10/20 00:25 Urine Turbidity Clear (Clear) 01/10/20 00:25 Urine pH 6.0 (5.0-7.0) 01/10/20 00:25 Ur Specific [place] 1.033 (1.003-1.030) H 01/10/20 00:25 Urine Protein <15 mg/dl mg/dL (Negative) 01/10/20 00:25 Urine Glucose (UA) >=500 mg/dL (Negative) 01/10/20 00:25 Urine Ketones 80 mg/dL (Negative) 01/10/20 00:25 Urine Blood Neg (Negative) 01/10/20 00:25 Urine Nitrite Neg (Negative) 01/10/20 00:25 Urine Bilirubin Neg (Negative) 01/10/20 00:25 Urine Urobilinogen < 2.0 mg/dL (<2.0) 01/10/20 00:25 Ur Leukocyte Esterase Mod (Negative) 01/10/20 00:25 Urine WBC (Auto) 34.0 /HPF (0.0-6.0) H 01/10/20 00:25 Urine RBC (Auto) 18.0 /HPF (0.0-6.0) 01/10/20 00:25 U Epithel Cells (Auto) 2.0 /HPF (0-13.0) 01/10/20 00:25 Urine Yeast (Budding) Few /HPF 01/10/20 00:25 Urine Total Volume 2500 ml 01/10/20 10:00 Urine Creatinine 88.7 mg/dL (0.1-20.0) H 01/10/20 10:00 Ur Creatinine 24 Hour 2.2 (0.8-2.8) 01/10/20 10:00 Ur Total Protein 24 Hr 425.00 mg/dL (2-200) H 01/10/20 10:00 Urine Total Protein 17 mg/dL (5-11.8) H 01/10/20 10:00 Coronavirus (PCR) Negative (Negative) 01/10/20 11:13 Microbiology: Microbiology 01/10/20 00:25 Urine,Clean Catch Urine Culture - Final Hua/IV: IV Catheter Type [Left Hand] Peripheral IV Active Medications - Current Medications Current Medications: Generic Name Dose Route Start Last Admin Trade Name Freq PRN Reason Stop Dose Admin Albuterol 2.5 mg 01/10/20 13:53 Proventil IH QIDRT PRN Shortness Of Breath Ferrous Sulfate 325 mg 01/12/20 22:00 01/14/20 09:14 Feosol PO 325 mg BID FATIMAH Administration Sodium Chloride 1,000 mls @ 150 mls/hr 01/10/20 20:06 01/13/20 06:30 Nacl 0.45% 1000 Ml IV 150 mls/hr DIRECT FATIMAH Administration Insulin Human NPH 52 unit 01/14/20 08:00 01/14/20 08:59 Humulin N SUB-Q 52 unit QDDIAB FATIMAH Administration Insulin Human NPH 34 unit 01/14/20 22:00 Humulin N SUB-Q QHS FATIMAH Insulin Human Regular 30 unit 01/13/20 17:00 01/14/20 09:08 Humulin R SUB-Q 30 unit QPMDIAB FATIMAH Administration Insulin Human Regular 36 unit 01/16/20 08:00 Humulin R SUB-Q QDDIAB FATIMAH Labetalol HCl 100 mg 01/10/20 22:00 01/14/20 09:13 Labetalol PO 100 mg BID FATIMAH Administration Nitrofurantoin Macrocrystals 100 mg 01/10/20 10:00 01/14/20 09:14 Macrobid PO 100 mg Q12HR FATIMAH Administration
[2020-01-14] MEDS ORDERED: INSULIN NPH, HUMAN 100 UNIT/1 ML SUB-Q SCH ×3 (17:00→22:00)
[2020-01-15] MEDS: INSULIN NPH, HUMAN 100 UNIT/1 ML SUB-Q SCH (08:59)
--- NOTE | 2020-01-15 09:10 | Progress Note ---
Assessment and Plan IDDM: poorly controlled: continue insulin as per [facility]: BS improved with increased titration, continue to monitor CHTN: BP's controlled on Labetalol LAbs WNL maternal and status reassuring overall plan of the day to continue ADA diet and insulin titration. Millie Loera MD Subjective - Subjective Date of service: 01/15/20 Principal diagnosis: uncontrolled DM Interval history: no new complaints regular insulin held yesterday AM because patient did not eat breakfast She did receive her morning dose of NPH and her evening dose of NPH and regular Fasting blood sugar was 111 this morning. ADA low carb diet Patient reports: movement normal, no loss of fluid, no contractions (PT doing well. No more dizziness like she had last night. Fasting BG today 120. 176 and 182 were postprandial levels today.) Objective - Vital Signs Vital Signs: Vital Signs - 12hr 01/14/20 01/15/20 01/15/20 23:10 06:05 06:06 Temperature 98.1 F 98.2 F Pulse Rate 101 H Blood Pressure 103/55 01/15/20 07:23 Temperature Pulse Rate 105 H Blood Pressure 120/61 - Exam Breasts: deferred Cardiovascular: Regular rate Lungs: Clear to auscultation Abdomen: Present: normal appearance, soft, normal bowel sounds FHR: category 1 Uterine Contraction Monitor Mode: External Extremities: normal Deep Tendon Reflex Grade: Normal +2 - Labs Labs: Abnormal Labs 01/10/20 01/10/20 01/10/20 00:21 00:25 02:40 WBC RBC Hgb Hct MCV MCH RDW Lymph % (Auto) [place] % (Auto) [place] # (Auto) Seg Neutrophils % Seg Neutrophils # Sodium 131 L Potassium Carbon Dioxide 15 L BUN Creatinine Glucose 374 H POC Glucose 381 H Hemoglobin A1c Albumin 3.3 L Ur Specific [place] 1.033 H Urine WBC (Auto) 34.0 H Urine Creatinine Ur Total Protein 24 Hr Urine Total Protein 01/10/20 01/10/20 01/10/20 03:00 04:11 05:06 WBC RBC Hgb Hct MCV MCH RDW Lymph % (Auto) [place] % (Auto) [place] # (Auto) Seg Neutrophils % Seg Neutrophils # Sodium Potassium Carbon Dioxide BUN Creatinine Glucose POC Glucose 335 H 305 H 328 H Hemoglobin A1c Albumin Ur Specific [place] Urine WBC (Auto) Urine Creatinine Ur Total Protein 24 Hr Urine Total Protein 01/10/20 01/10/20 01/10/20 06:22 08:04 08:04 WBC 14.2 H RBC Hgb 9.5 L Hct MCV 77 L MCH 24 L RDW 16.7 H Lymph % (Auto) 11.1 L [place] % (Auto) 8.8 H [place] # (Auto) 1.2 H Seg Neutrophils % 78.8 H Seg Neutrophils # 11.2 H Sodium Potassium Carbon Dioxide BUN Creatinine Glucose POC Glucose 295 H Hemoglobin A1c 10.3 H Albumin Ur Specific [place] Urine WBC (Auto) Urine Creatinine Ur Total Protein 24 Hr Urine Total Protein 01/10/20 01/10/20 01/10/20 08:23 09:31 10:00 WBC RBC Hgb Hct MCV MCH RDW Lymph % (Auto) [place] % (Auto) [place] # (Auto) Seg Neutrophils % Seg Neutrophils # Sodium Potassium Carbon Dioxide BUN Creatinine Glucose POC Glucose 293 H 287 H Hemoglobin A1c Albumin Ur Specific [place] Urine WBC (Auto) Urine Creatinine 88.7 H Ur Total Protein 24 Hr 425.00 H Urine Total Protein 17 H 01/10/20 01/10/20 01/10/20 10:34 11:35 12:23 WBC RBC Hgb Hct MCV MCH RDW Lymph % (Auto) [place] % (Auto) [place] # (Auto) Seg Neutrophils % Seg Neutrophils # Sodium Potassium Carbon Dioxide BUN Creatinine Glucose POC Glucose 317 H 293 H 335 H Hemoglobin A1c Albumin Ur Specific [place] Urine WBC (Auto) Urine Creatinine Ur Total Protein 24 Hr Urine Total Protein 01/10/20 01/10/20 01/10/20 13:19 14:15 14:49 WBC RBC Hgb Hct MCV MCH RDW Lymph % (Auto) [place] % (Auto) [place] # (Auto) Seg Neutrophils % Seg Neutrophils # Sodium 130 L Potassium Carbon Dioxide 16 L BUN Creatinine 0.5 L Glucose 284 H POC Glucose 265 H 264 H Hemoglobin A1c Albumin 3.1 L Ur Specific [place] Urine WBC (Auto) Urine Creatinine Ur Total Protein 24 Hr Urine Total Protein 01/10/20 01/10/20 01/10/20 16:39 18:31 19:14 WBC RBC Hgb Hct MCV MCH RDW Lymph % (Auto) [place] % (Auto) [place] # (Auto) Seg Neutrophils % Seg Neutrophils # Sodium 128 L Potassium Carbon Dioxide 17 L BUN Creatinine 0.5 L Glucose 321 H POC Glucose 258 H 299 H Hemoglobin A1c Albumin 2.8 L Ur Specific [place] Urine WBC (Auto) Urine Creatinine Ur Total Protein 24 Hr Urine Total Protein 01/10/20 01/10/20 01/10/20 19:46 21:44 23:42 WBC RBC Hgb Hct MCV MCH RDW Lymph % (Auto) [place] % (Auto) [place] # (Auto) Seg Neutrophils % Seg Neutrophils # Sodium Potassium Carbon Dioxide BUN Creatinine Glucose POC Glucose 257 H 300 H 253 H Hemoglobin A1c Albumin Ur Specific [place] Urine WBC (Auto) Urine Creatinine Ur Total Protein 24 Hr Urine Total Protein 01/11/20 01/11/20 01/11/20 00:50 01:41 03:49 WBC RBC Hgb Hct MCV MCH RDW Lymph % (Auto) [place] % (Auto) [place] # (Auto) Seg Neutrophils % Seg Neutrophils # Sodium 131 L Potassium 3.4 L Carbon Dioxide 18 L BUN Creatinine 0.5 L Glucose 230 H POC Glucose 191 H 177 H Hemoglobin A1c Albumin 3.1 L Ur Specific [place] Urine WBC (Auto) Urine Creatinine Ur Total Protein 24 Hr Urine Total Protein 01/11/20 01/11/20 01/11/20 05:50 07:43 09:25 WBC RBC Hgb Hct MCV MCH RDW Lymph % (Auto) [place] % (Auto) [place] # (Auto) Seg Neutrophils % Seg Neutrophils # Sodium Potassium Carbon Dioxide BUN Creatinine Glucose POC Glucose 169 H 178 H 219 H Hemoglobin A1c Albumin Ur Specific [place] Urine WBC (Auto) Urine Creatinine Ur Total Protein 24 Hr Urine Total Protein 01/11/20 01/11/20 01/11/20 11:24 11:57 15:11 WBC RBC Hgb Hct MCV MCH RDW Lymph % (Auto) [place] % (Auto) [place] # (Auto) Seg Neutrophils % Seg Neutrophils # Sodium 134 L Potassium 3.4 L Carbon Dioxide 20 L BUN 6 L Creatinine 0.5 L Glucose 198 H POC Glucose 175 H 171 H Hemoglobin A1c Albumin 3.1 L Ur Specific [place] Urine WBC (Auto) Urine Creatinine Ur Total Protein 24 Hr Urine Total Protein 01/11/20 01/11/20 01/11/20 17:12 18:33 19:20 WBC RBC Hgb Hct MCV MCH RDW Lymph % (Auto) [place] % (Auto) [place] # (Auto) Seg Neutrophils % Seg Neutrophils # Sodium 131 L Potassium Carbon Dioxide 18 L BUN Creatinine Glucose 188 H POC Glucose 184 H 155 H Hemoglobin A1c Albumin 3.0 L Ur Specific [place] Urine WBC (Auto) Urine Creatinine Ur Total Protein 24 Hr Urine Total Protein 01/11/20 01/11/20 01/12/20 21:07 23:23 00:23 WBC RBC Hgb Hct MCV MCH RDW Lymph % (Auto) [place] % (Auto) [place] # (Auto) Seg Neutrophils % Seg Neutrophils # Sodium 132 L Potassium Carbon Dioxide 17 L BUN Creatinine Glucose 164 H POC Glucose 154 H 146 H Hemoglobin A1c Albumin 3.1 L Ur Specific [place] Urine WBC (Auto) Urine Creatinine Ur Total Protein 24 Hr Urine Total Protein 01/12/20 01/12/20 01/12/20 05:09 06:28 11:30 WBC RBC Hgb Hct MCV MCH RDW Lymph % (Auto) [place] % (Auto) [place] # (Auto) Seg Neutrophils % Seg Neutrophils # Sodium 135 L Potassium Carbon Dioxide 19 L BUN Creatinine 0.5 L Glucose 187 H POC Glucose 160 H 226 H Hemoglobin A1c Albumin 3.0 L Ur Specific [place] Urine WBC (Auto) Urine Creatinine Ur Total Protein 24 Hr Urine Total Protein 01/12/20 01/12/20 01/12/20 13:34 15:51 18:49 WBC RBC Hgb Hct MCV MCH RDW Lymph % (Auto) [place] % (Auto) [place] # (Auto) Seg Neutrophils % Seg Neutrophils # Sodium 133 L 132 L Potassium Carbon Dioxide 17 L 17 L BUN 5 L 5 L Creatinine 0.5 L Glucose 228 H 243 H POC Glucose 195 H Hemoglobin A1c Albumin 3.0 L 3.0 L Ur Specific [place] Urine WBC (Auto) Urine Creatinine Ur Total Protein 24 Hr Urine Total Protein 01/12/20 01/13/20 01/13/20 20:36 05:57 06:17 WBC RBC 3.64 L Hgb 9.1 L Hct 27.3 L MCV 75 L MCH 25 L RDW 17.2 H Lymph % (Auto) [place] % (Auto) 9.3 H [place] # (Auto) 0.9 H Seg Neutrophils % 71.4 H Seg Neutrophils # Sodium Potassium Carbon Dioxide BUN Creatinine Glucose POC Glucose 205 H 137 H Hemoglobin A1c Albumin Ur Specific [place] Urine WBC (Auto) Urine Creatinine Ur Total Protein 24 Hr Urine Total Protein 01/13/20 01/13/20 01/13/20 11:16 14:34 17:16 WBC RBC Hgb Hct MCV MCH RDW Lymph % (Auto) [place] % (Auto) [place] # (Auto) Seg Neutrophils % Seg Neutrophils # Sodium Potassium Carbon Dioxide BUN Creatinine Glucose POC Glucose 168 H 174 H 143 H Hemoglobin A1c Albumin Ur Specific [place] Urine WBC (Auto) Urine Creatinine Ur Total Protein 24 Hr Urine Total Protein 01/13/20 01/13/20 01/14/20 20:11 22:47 03:17 WBC RBC Hgb Hct MCV MCH RDW Lymph % (Auto) [place] % (Auto) [place] # (Auto) Seg Neutrophils % Seg Neutrophils # Sodium Potassium Carbon Dioxide BUN Creatinine Glucose POC Glucose 161 H 126 H 145 H Hemoglobin A1c Albumin Ur Specific [place] Urine WBC (Auto) Urine Creatinine Ur Total Protein 24 Hr Urine Total Protein 01/14/20 01/14/20 01/14/20 05:57 11:00 13:42 WBC RBC Hgb Hct MCV MCH RDW Lymph % (Auto) [place] % (Auto) [place] # (Auto) Seg Neutrophils % Seg Neutrophils # Sodium Potassium Carbon Dioxide BUN Creatinine Glucose POC Glucose 120 H 176 H 182 H Hemoglobin A1c Albumin Ur Specific [place] Urine WBC (Auto) Urine Creatinine Ur Total Protein 24 Hr Urine Total Protein 01/14/20 01/14/20 01/15/20 16:18 22:00 06:06 WBC RBC Hgb Hct MCV MCH RDW Lymph % (Auto) [place] % (Auto) [place] # (Auto) Seg Neutrophils % Seg Neutrophils # Sodium Potassium Carbon Dioxide BUN Creatinine Glucose POC Glucose 159 H 63 L 111 H Hemoglobin A1c Albumin Ur Specific [place] Urine WBC (Auto) Urine Creatinine Ur Total Protein 24 Hr Urine Total Protein Laboratory Results - last 24 hr 01/14/20 01/14/20 01/14/20 11:00 13:42 16:18 POC Glucose 176 H 182 H 159 H 01/14/20 01/15/20 22:00 06:06 POC Glucose 63 L 111 H
[2020-01-15] MEDS: INSULIN REGULAR, HUMAN 100 UNIT/ML 3ML VIAL SUB-Q SCH ×2 (09:47→17:51)
[2020-01-15] MEDS: FERROUS SULFATE 325 MG TAB PO SCH ×3 (10:10→22:57)
[2020-01-15] MEDS: NITROFURANTOIN MONOHYD/M-CRYST 100 MG CAP PO SCH ×3 (10:10→22:57)
[2020-01-16] MEDS ORDERED: INSULIN REGULAR, HUMAN 100 UNIT/ML 3ML VIAL SUB-Q SCH ×2 (08:00→12:46)
[2020-01-16] MEDS: FERROUS SULFATE 325 MG TAB PO SCH (11:11)
[2020-01-16] MEDS: INSULIN REGULAR, HUMAN 100 UNIT/ML 3ML VIAL SUB-Q SCH ×2 (11:11→17:00)
[2020-01-16] MEDS: INSULIN NPH, HUMAN 100 UNIT/1 ML SUB-Q SCH (11:11)
[2020-01-16 11:14] VITALS: BP 126/56
--- NOTE | 2020-01-16 12:41 | Progress Note ---
Assessment and Plan - Patient Problems (1) Chronic hypertension affecting Current Visit: Yes Status: Acute Plan to address problem: good BP control. Cont Labetalol (2) Gestational diabetes Current Visit: Yes Status: Acute Qualifiers: Gestational diabetes mellitus control: insulin-controlled Trimester: third trimester Qualified Code(s): O24.414 - Gestational diabetes mellitus in , insulin controlled Plan to address problem: RN spoke with [facility] regarding adjustments to Insulin regimen. Will cont to keep here today and likely d/c home in the near future. Subjective - Subjective Date of service: 01/16/20 (30w 4d) Principal diagnosis: uncontrolled DM Patient reports: movement normal, no loss of fluid, no contractions (PT do ing well. No BGs recently over 200.) Objective - Vital Signs Vital Signs: Vital Signs - 12hr 01/16/20 01/16/20 01/16/20 05:20 05:24 06:01 Temperature 98.4 F Pulse Rate 98 H 94 H Respiratory Rate Blood Pressure 91/49 97/54 Blood Pressure [Right] O2 Sat by Pulse Oximetry 01/16/20 01/16/20 01/16/20 08:15 08:17 08:19 Temperature 97.9 F Pulse Rate 115 H 112 H 112 H Respiratory 16 Rate Blood Pressure 124/60 Blood Pressure 125/60 [Right] O2 Sat by Pulse 98 98 Oximetry 01/16/20 01/16/20 01/16/20 08:22 11:11 11:13 Temperature Pulse Rate 105 H 109 H 109 H Respiratory Rate Blood Pressure 126/56 126/56 Blood Pressure [Right] O2 Sat by Pulse 99 Oximetry 01/16/20 01/16/20 11:14 11:15 Temperature Pulse Rate 83 101 H Respiratory Rate Blood Pressure Blood Pressure [Right] O2 Sat by Pulse 92 91 Oximetry - Labs Labs: Abnormal Labs 01/10/20 01/10/20 01/10/20 00:21 00:25 02:40 WBC RBC Hgb Hct MCV MCH RDW Lymph % (Auto) Saline % (Auto) Saline # (Auto) Seg Neutrophils % Seg Neutrophils # Sodium 131 L Potassium Carbon Dioxide 15 L BUN Creatinine Glucose 374 H POC Glucose 381 H Hemoglobin A1c Albumin 3.3 L Ur Specific [place] 1.033 H Urine WBC (Auto) 34.0 H Urine Creatinine Ur Total Protein 24 Hr Urine Total Protein 01/10/20 01/10/20 01/10/20 03:00 04:11 05:06 WBC RBC Hgb Hct MCV MCH RDW Lymph % (Auto) Saline % (Auto) Saline # (Auto) Seg Neutrophils % Seg Neutrophils # Sodium Potassium Carbon Dioxide BUN Creatinine Glucose POC Glucose 335 H 305 H 328 H Hemoglobin A1c Albumin Ur Specific [place] Urine WBC (Auto) Urine Creatinine Ur Total Protein 24 Hr Urine Total Protein 01/10/20 01/10/20 01/10/20 06:22 08:04 08:04 WBC 14.2 H RBC Hgb 9.5 L Hct MCV 77 L MCH 24 L RDW 16.7 H Lymph % (Auto) 11.1 L [place] % (Auto) 8.8 H Saline # (Auto) 1.2 H Seg Neutrophils % 78.8 H Seg Neutrophils # 11.2 H Sodium Potassium Carbon Dioxide BUN Creatinine Glucose POC Glucose 295 H Hemoglobin A1c 10.3 H Albumin Ur Specific [place] Urine WBC (Auto) Urine Creatinine Ur Total Protein 24 Hr Urine Total Protein 01/10/20 01/10/20 01/10/20 08:23 09:31 10:00 WBC RBC Hgb Hct MCV MCH RDW Lymph % (Auto) Saline % (Auto) Saline # (Auto) Seg Neutrophils % Seg Neutrophils # Sodium Potassium Carbon Dioxide BUN Creatinine Glucose POC Glucose 293 H 287 H Hemoglobin A1c Albumin Ur Specific [place] Urine WBC (Auto) Urine Creatinine 88.7 H Ur Total Protein 24 Hr 425.00 H Urine Total Protein 17 H 01/10/20 01/10/20 01/10/20 10:34 11:35 12:23 WBC RBC Hgb Hct MCV MCH RDW Lymph % (Auto) [place] % (Auto) Saline # (Auto) Seg Neutrophils % Seg Neutrophils # Sodium Potassium Carbon Dioxide BUN Creatinine Glucose POC Glucose 317 H 293 H 335 H Hemoglobin A1c Albumin Ur Specific [place] Urine WBC (Auto) Urine Creatinine Ur Total Protein 24 Hr Urine Total Protein 01/10/20 01/10/20 01/10/20 13:19 14:15 14:49 WBC RBC Hgb Hct MCV MCH RDW Lymph % (Auto) Saline % (Auto) Saline # (Auto) Seg Neutrophils % Seg Neutrophils # Sodium 130 L Potassium Carbon Dioxide 16 L BUN Creatinine 0.5 L Glucose 284 H POC Glucose 265 H 264 H Hemoglobin A1c Albumin 3.1 L Ur Specific [place] Urine WBC (Auto) Urine Creatinine Ur Total Protein 24 Hr Urine Total Protein 01/10/20 01/10/20 01/10/20 16:39 18:31 19:14 WBC RBC Hgb Hct MCV MCH RDW Lymph % (Auto) Saline % (Auto) Saline # (Auto) Seg Neutrophils % Seg Neutrophils # Sodium 128 L Potassium Carbon Dioxide 17 L BUN Creatinine 0.5 L Glucose 321 H POC Glucose 258 H 299 H Hemoglobin A1c Albumin 2.8 L Ur Specific [place] Urine WBC (Auto) Urine Creatinine Ur Total Protein 24 Hr Urine Total Protein 01/10/20 01/10/20 01/10/20 19:46 21:44 23:42 WBC RBC Hgb Hct MCV MCH RDW Lymph % (Auto) Saline % (Auto) Saline # (Auto) Seg Neutrophils % Seg Neutrophils # Sodium Potassium Carbon Dioxide BUN Creatinine Glucose POC Glucose 257 H 300 H 253 H Hemoglobin A1c Albumin Ur Specific [place] Urine WBC (Auto) Urine Creatinine Ur Total Protein 24 Hr Urine Total Protein 01/11/20 01/11/20 01/11/20 00:50 01:41 03:49 WBC RBC Hgb Hct MCV MCH RDW Lymph % (Auto) Saline % (Auto) Saline # (Auto) Seg Neutrophils % Seg Neutrophils # Sodium 131 L Potassium 3.4 L Carbon Dioxide 18 L BUN Creatinine 0.5 L Glucose 230 H POC Glucose 191 H 177 H Hemoglobin A1c Albumin 3.1 L Ur Specific [place] Urine WBC (Auto) Urine Creatinine Ur Total Protein 24 Hr Urine Total Protein 01/11/20 01/11/20 01/11/20 05:50 07:43 09:25 WBC RBC Hgb Hct MCV MCH RDW Lymph % (Auto) Saline % (Auto) Saline # (Auto) Seg Neutrophils % Seg Neutrophils # Sodium Potassium Carbon Dioxide BUN Creatinine Glucose POC Glucose 169 H 178 H 219 H Hemoglobin A1c Albumin Ur Specific [place] Urine WBC (Auto) Urine Creatinine Ur Total Protein 24 Hr Urine Total Protein 01/11/20 01/11/20 01/11/20 11:24 11:57 15:11 WBC RBC Hgb Hct MCV MCH RDW Lymph % (Auto) Saline % (Auto) Saline # (Auto) Seg Neutrophils % Seg Neutrophils # Sodium 134 L Potassium 3.4 L Carbon Dioxide 20 L BUN 6 L Creatinine 0.5 L Glucose 198 H POC Glucose 175 H 171 H Hemoglobin A1c Albumin 3.1 L Ur Specific [place] Urine WBC (Auto) Urine Creatinine Ur Total Protein 24 Hr Urine Total Protein 01/11/20 01/11/2020 17:12 18:33 19:20 WBC RBC Hgb Hct MCV MCH RDW Lymph % (Auto) Saline % (Auto) Saline # (Auto) Seg Neutrophils % Seg Neutrophils # Sodium 131 L Potassium Carbon Dioxide 18 L BUN Creatinine Glucose 188 H POC Glucose 184 H 155 H Hemoglobin A1c Albumin 3.0 L Ur Specific [place] Urine WBC (Auto) Urine Creatinine Ur Total Protein 24 Hr Urine Total Protein 01/11/20 01/11/20 01/12/20 21:07 23:23 00:23 WBC RBC Hgb Hct MCV MCH RDW Lymph % (Auto) Saline % (Auto) Saline # (Auto) Seg Neutrophils % Seg Neutrophils # Sodium 132 L Potassium Carbon Dioxide 17 L BUN Creatinine Glucose 164 H POC Glucose 154 H 146 H Hemoglobin A1c Albumin 3.1 L Ur Specific [place] Urine WBC (Auto) Urine Creatinine Ur Total Protein 24 Hr Urine Total Protein 01/12/20 01/12/20 01/12/20 05:09 06:28 11:30 WBC RBC Hgb Hct MCV MCH RDW Lymph % (Auto) Saline % (Auto) Saline # (Auto) Seg Neutrophils % Seg Neutrophils # Sodium 135 L Potassium Carbon Dioxide 19 L BUN Creatinine 0.5 L Glucose 187 H POC Glucose 160 H 226 H Hemoglobin A1c Albumin 3.0 L Ur Specific [place] Urine WBC (Auto) Urine Creatinine Ur Total Protein 24 Hr Urine Total Protein 01/12/20 01/12/20 01/12/20 13:34 15:51 18:49 WBC RBC Hgb Hct MCV MCH RDW Lymph % (Auto) Saline % (Auto) Saline # (Auto) Seg Neutrophils % Seg Neutrophils # Sodium 133 L 132 L Potassium Carbon Dioxide 17 L 17 L BUN 5 L 5 L Creatinine 0.5 L Glucose 228 H 243 H POC Glucose 195 H Hemoglobin A1c Albumin 3.0 L 3.0 L Ur Specific [place] Urine WBC (Auto) Urine Creatinine Ur Total Protein 24 Hr Urine Total Protein 01/12/20 01/13/20 01/13/20 20:36 05:57 06:17 WBC RBC 3.64 L Hgb 9.1 L Hct 27.3 L MCV 75 L MCH 25 L RDW 17.2 H Lymph % (Auto) Saline % (Auto) 9.3 H Saline # (Auto) 0.9 H Seg Neutrophils % 71.4 H Seg Neutrophils # Sodium Potassium Carbon Dioxide BUN Creatinine Glucose POC Glucose 205 H 137 H Hemoglobin A1c Albumin Ur Specific [place] Urine WBC (Auto) Urine Creatinine Ur Total Protein 24 Hr Urine Total Protein 01/13/20 01/13/20 01/13/20 11:16 14:34 17:16 WBC RBC Hgb Hct MCV MCH RDW Lymph % (Auto) Saline % (Auto) Saline # (Auto) Seg Neutrophils % Seg Neutrophils # Sodium Potassium Carbon Dioxide BUN Creatinine Glucose POC Glucose 168 H 174 H 143 H Hemoglobin A1c Albumin Ur Specific [place] Urine WBC (Auto) Urine Creatinine Ur Total Protein 24 Hr Urine Total Protein 01/13/20 01/13/20 01/14/20 20:11 22:47 03:17 WBC RBC Hgb Hct MCV MCH RDW Lymph % (Auto) Saline % (Auto) Saline # (Auto) Seg Neutrophils % Seg Neutrophils # Sodium Potassium Carbon Dioxide BUN Creatinine Glucose POC Glucose 161 H 126 H 145 H Hemoglobin A1c Albumin Ur Specific [place] Urine WBC (Auto) Urine Creatinine Ur Total Protein 24 Hr Urine Total Protein 01/14/20 01/14/20 01/14/20 05:57 11:00 13:42 WBC RBC Hgb Hct MCV MCH RDW Lymph % (Auto) Saline % (Auto) Saline # (Auto) Seg Neutrophils % Seg Neutrophils # Sodium Potassium Carbon Dioxide BUN Creatinine Glucose POC Glucose 120 H 176 H 182 H Hemoglobin A1c Albumin Ur Specific [place] Urine WBC (Auto) Urine Creatinine Ur Total Protein 24 Hr Urine Total Protein 01/14/20 01/14/20 01/15/20 16:18 22:00 06:06 WBC RBC Hgb Hct MCV MCH RDW Lymph % (Auto) Saline % (Auto) Saline # (Auto) Seg Neutrophils % Seg Neutrophils # Sodium Potassium Carbon Dioxide BUN Creatinine Glucose POC Glucose 159 H 63 L 111 H Hemoglobin A1c Albumin Ur Specific [place] Urine WBC (Auto) Urine Creatinine Ur Total Protein 24 Hr Urine Total Protein 01/15/20 01/15/20 01/15/20 11:27 15:33 20:23 WBC RBC Hgb Hct MCV MCH RDW Lymph % (Auto) Saline % (Auto) Saline # (Auto) Seg Neutrophils % Seg Neutrophils # Sodium Potassium Carbon Dioxide BUN Creatinine Glucose POC Glucose 164 H 139 H 121 H Hemoglobin A1c Albumin Ur Specific [place] Urine WBC (Auto) Urine Creatinine Ur Total Protein 24 Hr Urine Total Protein 01/15/20 01/16/20 01/16/20 22:43 06:04 08:14 WBC RBC Hgb Hct MCV MCH RDW Lymph % (Auto) Saline % (Auto) Saline # (Auto) Seg Neutrophils % Seg Neutrophils # Sodium Potassium Carbon Dioxide BUN Creatinine Glucose POC Glucose 128 H 170 H 138 H Hemoglobin A1c Albumin Ur Specific [place] Urine WBC (Auto) Urine Creatinine Ur Total Protein 24 Hr Urine Total Protein 01/16/20 11:08 WBC RBC Hgb Hct MCV MCH RDW Lymph % (Auto) Saline % (Auto) Saline # (Auto) Seg Neutrophils % Seg Neutrophils # Sodium Potassium Carbon Dioxide BUN Creatinine Glucose POC Glucose 171 H Hemoglobin A1c Albumin Ur Specific [place] Urine WBC (Auto) Urine Creatinine Ur Total Protein 24 Hr Urine Total Protein Laboratory Results - last 24 hr 01/15/20 01/15/20 01/15/20 15:33 20:23 22:43 POC Glucose 139 H 121 H 128 H 01/16/20 01/16/20 01/16/20 02:55 06:04 08:14 POC Glucose 87 170 H 138 H 01/16/20 11:08 POC Glucose 171 H
[2020-01-16] MEDS ORDERED: INSULIN NPH, HUMAN 100 UNIT/1 ML SUB-Q SCH (12:45)
--- NOTE | 2020-01-16 16:30 | Event Note ---
Date: 01/16/20 case d/w Dr. Monroe from [facility] who reviewed her BGs and he said she can go home with NPH 54/34 and Regular and she is to RTO to see [facility] early next week.
--- NOTE | 2020-01-16 16:39 | Discharge Summary ---
Providers - Providers Date of Admission: 01/11/20 10:38 Attending physician: NAVEED ARMANDO JR, MD 01/10/20 02:27 Consult to Physician [CONS] Stat Comment: Consulting Provider: KAVYA RIVERA Physician Instructions: Reason For Exam: elevated CBGs at 29 weeks gestation Primary care physician: NAVEED ARMANDO JR, MD Hospitalization Hospital course: Patient admitted to the hospital for blood glucose control. Her sugars were better controlled at the time of discharge versus admission. At time of discharge she was sent home with an insulin regimen of NPH 54/34 and Regular 34/30 and she is to RTO to see [facility] early next week. [facility] followed her sugars throughout her hospital course and adjusted her insulin accordingly. Patient also on 100 twice daily of labetalol for her hypertension and her blood pressures were stable throughout her hospital course. Patient is sent home at 30 weeks and 4 days gestation. Condition at discharge: Stable Disposition: [id number] TO HOME OR SELFCARE - Discharge Diagnoses (1) Chronic hypertension affecting Status: Acute (2) Gestational diabetes Status: Acute Qualifiers: Gestational diabetes mellitus control: insulin-controlled Trimester: third trimester Qualified Code(s): O24.414 - Gestational diabetes mellitus in , insulin controlled Plan - Provider Discharge Summary Additional instructions: [] Smoking cessation referral if applicable(refer to patient education folder for contact #) [] Refer to [facility] Booklet Call your doctor immediately for: * Fever > 100.5 * Heavy vaginal bleeding ( >1 pad per hour) * Severe persistent headache * Shortness of breath * Reddened, hot, painful area to leg or breast * Drainage or odor from incision. * Keep incision clean and dry at all times and follow doctor's instructions regarding bathing/showering - Follow up plan Follow up: NAVEED ARMANDO JR, MD [Primary Care Provider] - 7 Days
== END 2020-01-16 17:56 | disposition home or self-care (01) | DRG 832 ==
LOC: TRG 23:06 → APU 23:16 → TRG 01-10 00:26 → LD 01-10 00:26 → OBSVTOIN 01-11 10:38
PROVIDERS: ADMIT Obstetrics & Gynecology; ATTEND Obstetrics & Gynecology
DX: O24.414 Gestational diabetes mellitus in pregnancy, insulin controlled (principal); E87.1 Hypo-osmolality and hyponatremia; O23.43 Unspecified infection of urinary tract in pregnancy, third trimester; O10.913 Unspecified pre-existing hypertension complicating pregnancy, third trimester; O99.213 Obesity complicating pregnancy, third trimester; O99.513 Diseases of the respiratory system complicating pregnancy, third trimester; J45.909 Unspecified asthma, uncomplicated; O99.283 Endocrine, nutritional and metabolic diseases complicating pregnancy, third trimester; E87.6 Hypokalemia; O99.013 Anemia complicating pregnancy, third trimester; D64.9 Anemia, unspecified; E66.01 Morbid (severe) obesity due to excess calories; Z3A.30 30 weeks gestation of pregnancy; Z20.828 Contact with and (suspected) exposure to other viral communicable diseases
CPT/HCPCS: 36415; 76810; 76815; 76816; 76819; 80053; 81001; 82570; 82962; 83036; 84156; 85025; 87086; G0378; J1815; J7030; J7120; U0003